=== PATIENT | female | born 1955 | race Caucasian/White ===

== ENCOUNTER 2019-07-22 08:09 | Outpatient (RCR) | payer BC, SELFPAY ==
[2019-04-28 12:31] LABS: INR 2.1; Prothrombin Time 22.5 Seconds (9.64-11.0)
[2019-07-22 08:29] LABS: Prothrombin Time 29.6 Seconds (9.64-11.0)
== END 2019-07-27 23:59 | disposition home or self-care (01) ==
LOC: CHSLAB 08:09
PROVIDERS: PCP Internal Medicine; Visit Provider Internal Medicine
DX: Z79.01 Long term (current) use of anticoagulants (principal)
CPT/HCPCS: 36415; 85610

== ENCOUNTER 2019-10-06 10:46 | Outpatient (RCR) | payer MEDICARE, SELFPAY ==
[2019-10-06 11:17] LABS: INR 2.3; Prothrombin Time 22.8 Seconds (9.64-11.0)
== END 2020-01-04 23:59 | disposition home or self-care (01) ==
LOC: CHSLAB 10:46
PROVIDERS: PCP Internal Medicine; Visit Provider Internal Medicine
DX: Z79.01 Long term (current) use of anticoagulants (principal)
CPT/HCPCS: 36415; 85610

== ENCOUNTER 2020-01-06 08:53 | Emergency (ER) | payer MEDICARE, SELFPAY ==
--- NOTE | ~2020-01-06 | XR_ITS ---
EXAMINATION: XR chest 1V portable DATE: 01/06/2020 09:52 INDICATION: Palpitations TECHNIQUE: frontal and lateral views of the chest were obtained. COMPARISON: Chest radiograph dated 12/25/16 FINDINGS: The lungs remain clear with no focal airspace opacities, pulmonary edema, pleural effusion or pneumot horax. Heart size within normal limits for AP technique. Gas within a moderate sized hiatal hernia. IMPRESSION: 1. No acute cardiopulmonary disease. 2. Moderate-sized hiatal hernia. Reviewed, dictated and finalized at location A.
[2020-01-06 09:10] VITALS: BP 119/84; PULSE 71; RESP 16; TEMP 37.2; O2SAT 97
--- NOTE | 2020-01-06 09:10 | ECG_ITS ---
Measurements Intervals [place] Rate: 65 P: 60 CO: 171 QRS: 55 QRSD: 89 T: 31 QT: 372 QTc: 389 Interpretive Statements SINUS RHYTHM NORMAL ECG Electronically Signed On 01-06-2020 10:38:13 CDT by Davie Vergara D.O.
[2020-01-06 09:22] VITALS: PULSE 69
[2020-01-06 09:25] LABS: Basophils Absolute Auto 0.03 K/mm3 (0.00-0.10); Basophils Percent Auto 0.5 % (0.0-1.0); Eosinophils Absolute Auto 0.09 K/mm3 (0.02-0.50); Eosinophils Percent Auto 1.6 % (1.0-6.0); Immature Granulocyte Absolute 0.02 K/mm3 (0.00-0.00); Immature Granulocyte Percent A 0.3 % (0.0-0.0); Lymphocytes Absolute Auto 1.54 K/mm3 (1.10-4.50); Lymphocytes Percent Auto 26.8 % (18.0-42.0); Mean Corpuscular HGB Conc 33.3 g/dL (32.0-36.0); Mean Corpuscular Hemoglobin 31.9 pg (27.0-31.0); Mean Corpuscular Volume 95.7 fL (78.0-102.0); Mean Platelet Volume 10.4 fl (9.2-11.8); Monocytes Absolute Auto 0.53 K/mm3 (0.10-0.90); Monocytes Percent Auto 9.2 % (2.0-11.0); Neutrophils Absolute Auto 3.5 K/mm3 (1.7-7.2); Neutrophils Percent Auto 61.6 % (50.0-70.0); Platelet Count Result 244 K/mm3 (150-420); Red Cell Distribution Width 12.1 % (11.6-14.4); White Blood Count 5.7 K/mm3 (4.8-10.8)
--- NOTE | 2020-01-06 09:29 | ED.ARRPALP ---
HPI - Arrhythmia/Palpitations General Chief Complaint: Arrhythmia/Palpitations Stated Complaint: afib Source: patient Mode of arrival: ambulatory Limitations: no limitations History of Present Illness HPI narrative: patient is a 64-year-old female who presents to the emergency department with complaints of palpitations. Patient has had a history of similar problems. Last time this happened was in June of this year, and before that it was almost a year and half ago. She does take Coumadin for her palpitations. This episode started at about 2 in the morning, which is normally how she notices her palpitations beginning. She stated that she was in AFib until she pretty much reach the parking lot here in the hospital. She states now it is back in to normal rhythm. She really did not have any symptoms other than noticing the palpitations. She states is not uncomfortable fluttering in her chest, but she does not have dizziness lightheadedness nausea vomiting no marcia chest pain shortness of breath or other symptomatology. MD complaint: skipped beats and palpitations Onset (ago): hour(s) Duration: constant Severity: mild Context: occurred during rest Arrhythmia history: atrial fibrillation Associated symptoms: denies other symptoms Related Data Home Medications Medication Instructions Recorded Confirmed atorvastatin 40 mg tablet 40 mg PO DAILY 08/13/19 01/06/20 cholecalciferol (vitamin D3) 50 50 mcg PO DAILY 08/13/19 01/06/20 mcg (2,000 unit) capsule levothyroxine 125 mcg capsule 125 mcg PO DAILY 08/13/19 01/06/20 lisinopril 10 mg tablet 10 mg PO DAILY 08/13/19 01/06/20 warfarin 6 mg tablet 6 mg PO WEEKLY 08/13/19 01/06/20 Allergies Allergy/AdvReac Type Severity Reaction Status Date / Time propoxyphene Allergy Mild ITCHING, Verified 08/13/19 16:28 INCREASED HR codeine Allergy Unknown Palpitation Verified 08/13/19 16:28 s Review of Systems Review of Systems: All systems reviewed & are unremarkable except as noted in HPI and below Constitutional: Constitutional: Reports no additional constitutional complaints Eyes: Eyes: Reports no additional eye complaints ENT: Reports system reviewed and no additional complaints, except as documented Cardiovascular: Cardiovascular: Reports as per HPI, Denies chest pain and Denies radiating jaw, neck or arm pain Respiratory: Respiratory: Reports no additional respiratory complaints Gastrointestinal: Gastrointestinal: Reports no additional gastrointestinal complaints Musculoskeletal: Musculoskeletal: Reports no additional musculoskeletal complaints Neurologic: Reports system reviewed and no additional complaints, except as documented Psychiatric: Psychiatric: Reports no additional psychiatric complaints Endocrine: Endocrine: Reports no additional endocrine complaints Hematologic/Lymphatic: Hematologic/Lymphatic: Reports no additional hematologic/lymphatic complaints Allergic/Immunologic: Allergic/Immunologic: Reports no additional allergic/immunologic complaints PMFSH Past Medical History Medical History Arthritis Body mass index (bmi) 31.0-31.9, adult (02/24/19) BRAY (dyspnea on exertion) Dyslipidemia Essential hypertension History of palpitations Obesity (BMI 30.0-34.9) PAF (paroxysmal atrial fibrillation) Preop cardiovascular exam Smoking Thyroid disease Surgical History Surgical History History of hysterectomy History of tonsillectomy Family History Family History Father Diabetes mellitus Family history of malignant neoplasm of urinary bladder Mother Acute myocardial infarction Social History Social History Smoking status: Current every day smoker Exam Const: General: no acute distress and alert N
[2020-01-06 09:51] LABS: Alanine Aminotransferase 27 U/L (14-59); Albumin Level 3.7 g/dL (3.4-5.0); Alkaline Phosphatase 92 U/L (46-116); Anion Gap 7 mmol/L (8-16); Aspartate Amino Transferase 19 U/L (15-37); Bilirubin,Total 0.5 mg/dL (0.00-1.00); Blood Urea Nitrogen 12 mg/dL (7-18); Calcium 9.3 mg/dL (8.5-10.1); Carbon Dioxide 27 mmol/L (21-32); Chloride 106 mmol/L (98-108); Estimated CRCL calculation 55 ml/min; Estimated Glomerular Filt Rate > 60; Glucose 112 mg/dL (70-99); Magnesium 2.2 mg/dL (1.8-2.4); Osmolality Calculated 290 mOsm/kg (285-295); Sodium 140 mmol/L (136-145); Total Protein 7.5 g/dL (6.4-8.2); Troponin I < 0.02 ng/mL (0.00-0.056)
[2020-01-06 09:52] LABS: Thyroid Stimulating Hormone 0.38 uIU/mL (0.36-3.74)
[2020-01-06 10:33] LABS: INR 2.8; Prothrombin Time 27.7 Seconds (9.64-11.0)
[2020-01-06 11:23] VITALS: BP 129/88; PULSE 74; RESP 16; TEMP 36.6; O2SAT 98
== END 2020-01-06 11:25 | disposition home or self-care (01) ==
PROVIDERS: Emergency Provider Emergency Medicine; PCP Internal Medicine
DX: I48.91 Unspecified atrial fibrillation (principal); E78.5 Hyperlipidemia, unspecified; E66.9 Obesity, unspecified; F17.200 Nicotine dependence, unspecified, uncomplicated; Z79.01 Long term (current) use of anticoagulants
CPT/HCPCS: 36415; 71045; 80053; 83735; 84443; 84484; 85025; 85610; 93005; 99284

== ENCOUNTER 2020-04-01 11:46 | Outpatient (RCR) | payer MEDICARE, SELFPAY ==
[2020-04-01 12:10] LABS: INR 3.5; Prothrombin Time 34.3 Seconds (9.64-11.0)
== END 2020-06-30 23:59 | disposition home or self-care (01) ==
LOC: CHSLAB 11:46
PROVIDERS: PCP Internal Medicine; Visit Provider Internal Medicine
DX: Z79.01 Long term (current) use of anticoagulants (principal)
CPT/HCPCS: 36415; 85610

== ENCOUNTER 2020-07-18 07:43 | Outpatient (CLI) | payer MEDICARE, SELFPAY ==
--- NOTE | ~2020-07-18 | MM_ITS ---
EXAMINATION: MM screening osmel BI w idalmis HISTORY: Screening mammogram TECHNIQUE: Craniocaudal and mediolateral oblique 3-D tomosynthesis images were obtained and synthetic 2-D images were generated. CAD analysis was submitted and interpreted. COMPARISON: 05/25/2019, 05/22/2018, 05/09/2017, 03/23/2016, 08/14/2011 bilateral digital screening mammog [place] examinations BREAST PARENCHYMAL COMPOSITION: There are scattered areas of fibroglandular density. FINDINGS: There is chronic asymmetry in the upper inner quadrant of the left breast, not significantl y changed since 08/14/2011. There is no evidence of suspicious mass, calcification, or architectural di stortion to suggest malignancy in either breast. There has been no suspicious interval change. IMPRESSION: 1. No mammographic evidence of malignancy. 2. Recommend routine screening mammography in one year. BI-RADS Category 2: Benign finding(s). Reviewed, dictated and finalized at location A. [employer]
== END 2020-07-18 07:44 | disposition home or self-care (01) ==
LOC: CHSIMG 07:45
PROVIDERS: PCP Internal Medicine; Visit Provider Internal Medicine
DX: Z12.31 Encounter for screening mammogram for malignant neoplasm of breast (principal)
CPT/HCPCS: 77063; 77067

== ENCOUNTER 2020-07-22 07:44 | Outpatient (CLI) | payer MEDICARE, SELFPAY ==
--- NOTE | ~2020-07-22 | US_ITS ---
EXAMINATION: US carotid duplex BI DATE: 07/22/2020 08:33 INDICATION: Bilateral carotid stenosis. TECHNIQUE: Grayscale, color Doppler, and pulsed Doppler images of the cervical carotid arteries were obtained. The degree of vessel stenosis is placed in one of the following categories: normal, <50%, 5 0-69%, >=70% but less than near-occlusion, near-occlusion, or total occlusion. Note that percent sten osis relative to normal distal artery lumen diameter is indirectly measured from velocity measurement s as described by Luis, et al. Radiology 2003; 229:340-346. COMPARISON: Ultrasound 08/22/2017 FINDINGS: RIGHT: The right common carotid artery (CCA) peak systolic velocity (PSV) is 100 cm/s. The right internal ca rotid artery (ICA) PSV is 88 cm/s. The right ICA end-diastolic velocity (EDV) is 16 cm/s. The right I CA/CCA PSV ratio is 0.9. Grayscale and color Doppler images yield an estimate of <50% diameter reduct ion from plaque in the ICA. There is antegrade flow in the right vertebral artery. LEFT: The left CCA PSV is 90 cm/s. The left ICA PSV is 73 cm/s. The left ICA EDV is 25 cm/s. The left ICA/C CA PSV ratio is 0.8. Grayscale and color Doppler images yield an estimate of <50% diameter reduction from plaque in the ICA. There is antegrade flow in the left vertebral artery. IMPRESSION: 1. <50% stenosis in the right internal carotid artery. 2. <50% stenosis in the left internal carotid artery. Reviewed, dictated and finalized at location A. [employer]ACHINE
== END 2020-07-22 07:45 | disposition home or self-care (01) ==
LOC: CHSIMG 07:45
PROVIDERS: PCP Internal Medicine; Visit Provider Internal Medicine
DX: I65.23 Occlusion and stenosis of bilateral carotid arteries (principal)
CPT/HCPCS: 93880

== ENCOUNTER 2020-07-29 07:52 | Outpatient (CLI) | payer MEDICARE, SELFPAY ==
--- NOTE | ~2020-07-29 | DEXA_ITS ---
Bone Density Report Name: Karla Clements Age: 64 Sex: Female Ethnicity: White Date of : 1955 Indication: osteopenia; hysterectomy; Referring Provider: Kris Hussein Study: Bone densitometry was performed. Exam Date: July 29, 2020 Accession number: [id number] Bone Density: Region BMD T-score Z-score Classification AP Spine(L1, L2, L4) 0.898 -1.2 0.6 Osteopenia Femoral Neck (Left) 0.576 -2.5 -0.8 Osteoporosis Total Hip (Left) 0.702 -2.0 -0.6 Osteopenia Femoral Neck (Right) 0.629 -2.0 -0.4 Osteopenia Total Hip (Right) 0.702 -2.0 -0.6 Osteopenia Femoral Neck Mean 0.603 -2.2 -0.6 Osteopenia Total Hip Mean 0.702 -2.0 -0.6 Osteopenia World Health Organization criteria for BMD impression classify patients as: Normal (T-score at or above -1.0), Osteopenia (T-score between -1.0 and -2.5), or Osteoporosis (T-score at or below -2.5). 10-year Fracture Risk: FRAX not reported because: Some T-score for Spine Total or Hip Total or Femoral Neck at or below -2.5 Previous Exams: Region Exam Age BMD T-score BMD Change BMD Change Date g/cm2 vs Baseline vs Previous AP Spine (L1-L2,L4) 07/29/2020 64 0.898 -1.2 0.007 (0.8%)# 0.007 (0.8%)# 03/23/2016 60 0.891 -1.3 Total Hip(Left) 07/29/2020 64 0.702 -2.0 -0.062 (-8.1%) -0.062 (-8.1%) 03/23/2016 60 0.764 -1.5 *Denotes significance at 95% confidence level, LSC for AP Spine = 0.022 g/cm2, LSC for Total Hip = 0.027 g/cm2 # Denotes dissimilar scan types or analysis methods Clinical Information Provided by Patient: Smokes Has used the following medications: Vitamin D Has the following medical conditions: Hysterectomy Menopause Age: 38 No regular weight bearing exercise Does not regularly consume dairy products Onset of menses at age 10 Number of children 3 Impression: The patient has osteoporosis, based on the Left Femoral Neck T-score. The patient has risk factors, including: smoking. No significant bone loss was observed. Discussion: INCREASED RISK OF FRACTURE. BONE DENSITY IS UNDESIRABLY LOW AT ONE OR MORE SKELETAL SITES, CONSISTENT WITH POSTMENOPAUSAL OSTEOPOROSIS. This patient's lowest T-score meets the World Health Organization's (WHO) criteria for osteoporosis at one or more sites (T-score -2.5 or below). In untreated patients, the risk of osteoporotic fracture increases approximately two-fold for each 1.0 SD decrease in T-score. Low bone density is not the only risk factor for fracture; also consider factors davis
--- NOTE | ~2020-07-29 | CT_ITS ---
EXAMINATION: CT lung screening DATE: 07/29/2020 08:21 INDICATION: tobacco dependence; lung cancer screening hx tobacco dependence, still smoking TECHNIQUE: Computed tomography (CT) of the chest was performed without intravenous contrast. Addition al 3D reconstructions utilizing coronal maximum intensity projection (MIP) were performed. Automated exposure control and iterative reconstruction technique were employed. The dose-length product was 11 8.20 mGy-cm. COMPARISON: 08/22/2017 FINDINGS: Unchanged mild linear discoid atelectasis/scarring at the lingula and the anterior segment of the rig ht upper lobe. Unchanged very small calcified left lower lobe nodule consistent with old granulomatou s disease. No other pulmonary nodules, airspace disease, pulmonary edema or pleural effusion. Heart s ize is normal. Atherosclerotic coronary artery calcification is. No pericardial effusion. Moderate-si zed sliding-type hiatal hernia. No pathologically enlarged thoracic lymphadenopathy. Lower thoracic k yphosis with severe spondylosis and chronic mild anterior wedging at T10-T12. IMPRESSION: 1. Lung-RADS category 1: Negative. Continue annual screening with noncontrast low-dose chest CT in 12 months. 2. Moderate-sized sliding-type hiatal hernia. Reviewed, dictated and finalized at location B. IMPRESSION: 1. Lung-RADS category 1: Negative. Continue annual screening with noncontrast l ow-dose chest CT in 12 months. 2. Moderate-sized sliding-type hiatal hernia.
== END 2020-07-29 07:53 | disposition home or self-care (01) ==
LOC: CHSIMG 07:55
PROVIDERS: PCP Internal Medicine; Visit Provider Internal Medicine
DX: Z12.2 Encounter for screening for malignant neoplasm of respiratory organs (principal); Z87.891 Personal history of nicotine dependence; M81.0 Age-related osteoporosis without current pathological fracture
CPT/HCPCS: 71271; 77080

== ENCOUNTER 2020-09-08 08:38 | Outpatient (CLI) | payer MEDICARE, SELFPAY ==
[2020-09-08] MEDS: ZOLEDRONIC ACID 5 MG/100 ML 100 ML 400 MG IVPB (09:02)
[2020-09-08 09:15] VITALS: BMI 35.9
--- NOTE | 2020-09-08 09:24 | PC.NURSE ---
Patient here for Reclast IV infusion. Educated on medication. No concerns voiced. Safe exit of hospital.
== END 2020-09-08 08:39 | disposition home or self-care (01) ==
LOC: CHSTREATRM 08:42
PROVIDERS: PCP Internal Medicine; Visit Provider Internal Medicine
DX: M81.0 Age-related osteoporosis without current pathological fracture (principal)
CPT/HCPCS: 96374; J3489

== ENCOUNTER 2021-01-19 08:10 | Outpatient (RCR) | payer MEDICARE, SELFPAY ==
[2021-01-11 08:28] LABS: INR 4.1; Prothrombin Time 41.4 Seconds (9.50-12.10)
[2021-01-19 08:38] LABS: INR 2.3; Prothrombin Time 23.2 Seconds (9.50-12.10)
== END 2021-04-11 23:59 | disposition home or self-care (01) ==
LOC: CHSLAB 08:10
PROVIDERS: PCP Internal Medicine; Visit Provider Internal Medicine
DX: Z79.01 Long term (current) use of anticoagulants (principal)
CPT/HCPCS: 36415; 85610

== ENCOUNTER 2021-08-04 06:53 | Outpatient (CLI) | payer MEDICARE, SELFPAY ==
--- NOTE | ~2021-08-04 | MM_ITS ---
EXAMINATION: MM screening osmel BI w idalmis HISTORY: Screening TECHNIQUE: Craniocaudal and mediolateral oblique 3-D tomosynthesis images were obtained and synthetic 2-D images were generated. CAD analysis was submitted and interpreted. COMPARISON: Comparison to multiple prior studies sequentially, with oldest reviewed study dated 07/2014. BREAST PARENCHYMAL COMPOSITION: There are scattered areas of fibroglandular density. FINDINGS: Focal asymmetry in the medial aspect of the left breast is stable. There is no evidence of suspicious mass, calcification, or architectural distortion to suggest malignancy in either breast. T here has been no suspicious interval change. IMPRESSION: 1. No mammographic evidence of malignancy. 2. Recommend routine screening mammography in one year. BI-RADS Category 1: Negative Reviewed, dictated and finalized at location A.
== END 2021-08-04 06:54 | disposition home or self-care (01) ==
LOC: CHSIMG 06:56
PROVIDERS: PCP Internal Medicine; Visit Provider Internal Medicine
DX: Z12.31 Encounter for screening mammogram for malignant neoplasm of breast (principal)
CPT/HCPCS: 77063; 77067

== ENCOUNTER 2021-08-09 07:26 | Outpatient (CLI) | payer MEDICARE, SELFPAY ==
--- NOTE | ~2021-08-09 | CT_ITS ---
EXAMINATION:CT lung screening DATE: 08/09/2021 07:41 INDICATION: Personal history of nicotine dependence. Current smoker with 49 pack year history. TECHNIQUE: Computed tomography (CT) of the chest was performed without intravenous contrast. Automate d exposure control and iterative reconstruction technique were employed. The dose-length product (DLP ) was 119.06 mGy-cm. COMPARISON: Chest CT 07/29/2020 FINDINGS: There is mild atelectasis bilaterally. A calcified left lung nodule is consistent with old granulomatous disease. No pleural effusion. The heart size is normal. There are coronary artery calci fications. No pericardial effusion. There is a moderate-sized sliding hiatal hernia. There is thoraci c kyphosis and severe spondylosis. IMPRESSION: 1. Lung-RADS category 1: Negative. Continue annual screening with noncontrast low-dose chest CT in 12 months. 2. Moderate-sized sliding hiatal hernia. Reviewed, dictated and finalized at location A. IMPRESSION: 1. Lung-RADS category 1: Negative. Continue annual screening with noncontrast l ow-dose chest CT in 12 months. 2. Moderate-sized sliding hiatal hernia.
== END 2021-08-09 07:27 | disposition home or self-care (01) ==
LOC: CHSIMG 07:27
PROVIDERS: PCP Internal Medicine; Visit Provider Internal Medicine
DX: Z12.2 Encounter for screening for malignant neoplasm of respiratory organs (principal); Z87.891 Personal history of nicotine dependence
CPT/HCPCS: 71271

== ENCOUNTER 2021-09-14 08:44 | Outpatient (CLI) | payer MEDICARE, SELFPAY ==
[2021-09-14 08:57] VITALS: BMI 34.0
[2021-09-14 08:58] VITALS: BP 124/74; PULSE 72; RESP 14; TEMP 36.2; O2SAT 98
[2021-09-14] MEDS: ZOLEDRONIC ACID 5 MG/100 ML 100 ML 400 MG IVPB (09:00)
--- NOTE | 2021-09-14 09:06 | PC.NURSE ---
Patient here for yearly IV Reclast infusion. Education given. No concerns voiced. IV Relcast administered. SEE MAR. Tolerated well. Safe exit of hospital.
== END 2021-09-14 08:45 | disposition home or self-care (01) ==
LOC: CHSTREATRM 08:47
PROVIDERS: PCP Internal Medicine; Visit Provider Internal Medicine
DX: M81.0 Age-related osteoporosis without current pathological fracture (principal)
CPT/HCPCS: 96374; J3489

== ENCOUNTER 2022-06-13 07:39 | Outpatient (RCR) | payer MEDICARE, SELFPAY ==
[2022-05-04 11:34] LABS: INR 2.1; Prothrombin Time 21.5 Seconds (9.50-12.10)
[2022-06-13 11:17] LABS: INR 2.3; Prothrombin Time 23.9 Seconds (9.64-11.0)
== END 2022-08-02 23:59 | disposition home or self-care (01) ==
LOC: CHSLAB 07:39
PROVIDERS: PCP Internal Medicine; Visit Provider Internal Medicine
DX: Z51.81 Encounter for therapeutic drug level monitoring (principal); Z79.01 Long term (current) use of anticoagulants
CPT/HCPCS: 36415; 85610

== ENCOUNTER 2022-08-08 13:18 | Outpatient (CLI) | payer MEDICARE, SELFPAY ==
--- NOTE | ~2022-08-08 | MM_ITS ---
EXAMINATION: MM screening osmel BI w idalmis HISTORY: Screening TECHNIQUE: Craniocaudal and mediolateral oblique 3-D tomosynthesis images were obtained and synthetic 2-D images were generated. CAD analysis was submitted and interpreted. COMPARISON: Comparison to multiple prior studies sequentially, with oldest reviewed study dated 04/13. BREAST PARENCHYMAL COMPOSITION: There are scattered areas of fibroglandular density. FINDINGS: Stable left breast asymmetry. There is no evidence of suspicious mass, calcification, or ar chitectural distortion to suggest malignancy in either breast. There has been no suspicious interval change. IMPRESSION: 1. No mammographic evidence of malignancy. 2. Recommend routine screening mammography in one year. BI-RADS Category 1: Negative Reviewed, dictated and finalized at location A.
== END 2022-08-08 13:19 | disposition home or self-care (01) ==
LOC: CHSIMG 13:19
PROVIDERS: PCP Internal Medicine; Visit Provider Internal Medicine
DX: Z12.31 Encounter for screening mammogram for malignant neoplasm of breast (principal)
CPT/HCPCS: 77063; 77067

== ENCOUNTER 2022-08-21 12:45 | Outpatient (CLI) | payer MEDICARE, SELFPAY ==
--- NOTE | ~2022-08-21 | US_ITS ---
EXAMINATION: US carotid duplex BI DATE: 08/21/2022 13:13 INDICATION: Carotid stenosis. TECHNIQUE: Grayscale, color Doppler, and pulsed Doppler images of the cervical carotid arteries were obtained. The degree of vessel stenosis is placed in one of the following categories: normal, <50%, 5 0-69%, >=70% but less than near-occlusion, near-occlusion, or total occlusion. Note that percent sten osis relative to normal distal artery lumen diameter is indirectly measured from velocity measurement s as described by Luis, et al. Radiology 2003; 229:340-346. COMPARISON: Ultrasound 07/22/2020 FINDINGS: RIGHT: The right common carotid artery (CCA) peak systolic velocity (PSV) is 87 cm/s. The right internal car otid artery (ICA) PSV is 91 cm/s. The right ICA end-diastolic velocity (EDV) is 41 cm/s. The right IC A/CCA PSV ratio is 1.0. Grayscale and color Doppler images yield an estimate of <50% diameter reducti on from plaque in the ICA. There is antegrade flow in the right vertebral artery. LEFT: The left CCA PSV is 66 cm/s. The left ICA PSV is 94 cm/s. The left ICA EDV is 40 cm/s. The left ICA/C CA PSV ratio is 1.4. Grayscale and color Doppler images yield an estimate of <50% diameter reduction from plaque in the ICA. There is antegrade flow in the left vertebral artery. IMPRESSION: 1. <50% stenosis in the right internal carotid artery. 2. <50% stenosis in the left internal carotid artery. Reviewed, dictated and finalized at location A.
--- NOTE | ~2022-08-21 | CT_ITS ---
EXAMINATION: CT lung screening DATE: 08/21/2022 13:17 INDICATION: Personal history of tobacco dependence TECHNIQUE: Computed tomography (CT) of the chest was performed without intravenous contrast. The dose -length product was 113.24 mGy-cm. Automated exposure control and iterative reconstruction technique were employed. COMPARISON: CT dated 08/09/2021 and 07/29/2020 FINDINGS: No significant pleural or pericardial effusion. Heart size normal. No thoracic lymphadenopa thy. There is atherosclerosis of the aorta and coronary arteries. Moderate size hiatal hernia. No pne umothorax. No endobronchial lesions. No suspicious pulmonary nodules or masses. There is lingular ate lectasis. There is a calcified granuloma in the left lower lobe. IMPRESSION: 1. Lung-RADS category 1: Negative. Continue annual screening with noncontrast low-dose chest CT in 12 months. Reviewed, dictated and finalized at location L. IMPRESSION: 1. Lung-RADS category 1: Negative. Continue annual screening with noncontrast l ow-dose chest CT in 12 months.
== END 2022-08-21 12:46 | disposition home or self-care (01) ==
LOC: CHSIMG 12:47
PROVIDERS: PCP Internal Medicine; Visit Provider Internal Medicine
DX: I65.23 Occlusion and stenosis of bilateral carotid arteries (principal); Z12.2 Encounter for screening for malignant neoplasm of respiratory organs; Z87.891 Personal history of nicotine dependence
CPT/HCPCS: 71271; 93880

== ENCOUNTER 2022-09-28 12:19 | Outpatient (CLI) | payer MEDICARE, SELFPAY ==
--- NOTE | 2022-09-28 12:35 | PC.NURSE ---
Patient here to receive Reclast infusion. Patient sitting up in chair, tolerated IV start well. Call light provided. Waiting for medication from pharmacy.
[2022-09-28] MEDS: ZOLEDRONIC ACID 5 MG/100 ML 100 ML 400 MG IVPB (12:52)
--- NOTE | 2022-09-28 13:20 | PC.NURSE ---
Patient tolerated Reclast infusion well. Denies any questions or concerns. IV site removed, tip intact. Dressing applied to site. patient left floor ambulatory.
== END 2022-09-28 12:20 | disposition home or self-care (01) ==
LOC: CHSTREATRM 12:20
PROVIDERS: PCP Internal Medicine; Visit Provider Internal Medicine
DX: M81.0 Age-related osteoporosis without current pathological fracture (principal)
CPT/HCPCS: 96365; 96374; J3489

== ENCOUNTER 2022-10-24 09:43 | Outpatient (CLI) | payer MEDICARE, SELFPAY ==
--- NOTE | ~2022-10-24 | MM_ITS ---
? Bone Density Report? Name:? Karla Clements J Patient ID:??? [id number] Age:? 67 Sex:? Female Ethnicity:? White Date of : 1955 Indication: postmenopausal; screening for osteoporosis; height loss; hysterectomy; Referring Provider: Kris Hussein Study: Bone densitometry was performed. Exam Date: October 24, 2022 Accession number: [id number] Bone Density: Region? BMD??? T-score? Z-score?? Classification AP Spine(L1-L4)? 0.827?? -2.0?0.1? Osteopenia Femoral Neck (Left)? 0.576?? -2.5? -0.7? Osteoporosis Total Hip (Left)? 0.774? ? -1.4? 0.1? Osteopenia Femoral Neck (Right)? 0.637? ? -1.9? -0.2? Osteopenia Total Hip (Right)? 0.755? ? -1.5? -0.1? Osteopenia Femoral Neck Mean? 0.606 ?? -2.2? -0.4? Osteopenia Total Hip Mean? 0.764?? -1.5? 0.0? Osteopenia World Health Organization criteria for BMD impression classify patients as: Normal (T-score at or above -1.0), Osteopenia (T-score between -1.0 and -2.5), or Osteoporosis (T-score at or below -2.5). 10-year Fracture Risk: FRAX not reported because: ? Some T-score for Spine Total or Hip Total or Femoral Neck at or below -2.5 Clinical Information Provided by Patient: Smokes Has used the following medications: Vitamin D Has the following medical conditions: Hysterectomy Patient maximum height was 64 Menopause Age: 48 No regular weight bearing exercise Does not regularly consume dairy products Drinks caffeinated beverages Onset of menses at age 10 Number of children 3 Impression: The patient has osteoporosis, based on the Left Femoral Neck T- score. The patient has risk factors, including: smoking. Discussion: INCREASED RISK OF FRACTURE. BONE DENSITY IS UNDESIRABLY LOW AT ONE OR MORE SKELETAL SITES, CONSISTENT WITH POSTMENOPAUSAL OSTEOPOROSIS. This patient's lowest T-score meets the World Health Organization's (WHO) criteria for osteoporosis at one or more sites (T-score -2.5 or below).? In untreated patients, the risk of osteoporotic fracture increases approximately two-fold for each 1.0 SD decrease in T-score.? Low bone density is not the only risk factor for fracture; also consider factors such as patient's age, frailty or poor health, risk of falling, risk of injury, previous osteoporotic fracture, family history of osteoporosis, cigarette smoking, low body weight, etc.? Not everyone with low bone mineral density has osteoporosis; osteomalacia and other metabolic bone disorders should also be considered. Patients who have osteoporosis should be evaluated for specific diseases and conditions (secondary causes) that may cause or contribute to bone loss.? The [place] [employer]ocrinologists (AACE) and National Osteoporosis Foundation (NOF) recommend pharmacologic intervention for all postmenopausal women whose T-score is in this ran
--- NOTE | ~2022-10-24 | DEXA_ITS ---
? Bone Density Report? Name:? Karla Clements J Patient ID:??? [id number] Age:? 67 Sex:? Female Ethnicity:? White Date of : 1955 Indication: postmenopausal; screening for osteoporosis; height loss; hysterectomy; Referring Provider: Kris Hsusein Study: Bone densitometry was performed. Exam Date: October 24, 2022 Accession number: [id number] Bone Density: Region? BMD??? T-score? Z-score?? Classification AP Spine(L1-L4)? 0.827?? -2.0?0.1? Osteopenia Femoral Neck (Left)? 0.576? ? -2.5? -0.7? Osteoporosis Total Hip (Left)? 0.774? ? -1.4? 0.1 ? Osteopenia Femoral Neck (Right)? 0.637? ? -1.9? -0.2? Osteopenia Total Hip (Right)? 0.755? ? -1.5? -0.1? Osteopenia Femoral Neck Mean? 0.606?? -2.2? -0.4? Osteopenia Total Hip Mean? 0.764? ? -1.5? 0.0? Osteopenia World Health Organization criteria for BMD impression classify patients as: Normal (T-score at or above -1.0), Osteopenia (T-score between -1.0 and -2.5), or Osteoporosis (T-score at or below -2.5). 10-year Fracture Risk: FRAX not reported because: ? Some T-score for Spine Total or Hip Total or Femoral Neck at or below -2.5 Clinical Information Provided by Patient: Smokes Has used the following medications: Vitamin D Has the following medical conditions: Hysterectomy Patient maximum height was 64 Menopause Age: 48 No regular weight bearing exercise Does not regularly consume dairy products Drinks caffeinated beverages Onset of menses at age 10 Number of children 3 Impression: The patient has osteoporosis, based on the Left Femoral Neck T- score. The patient has risk factors, including: smoking. Discussion: INCREASED RISK OF FRACTURE. BONE DENSITY IS UNDESIRABLY LOW AT ONE OR MORE SKELETAL SITES, CONSISTENT WITH POSTMENOPAUSAL OSTEOPOROSIS. This patient's lowest T-score meets the World Health Organization's (WHO) criteria for osteoporosis at one or more sites (T-score -2.5 or below).? In untreated patients, the risk of osteoporotic fracture increases approximately two-fold for each 1.0 SD decrease in T-score.? Low bone density is not the only risk factor for fracture; also consider factors such as patient's age, frailty or poor health, risk of falling, risk of injury, previous osteoporotic fracture, family history of osteoporosis, cigarette smoking, low body weight, etc.? Not everyone with low bone mineral density has osteoporosis; osteomalacia and other metabolic bone disorders should also be considered. Patients who have osteoporosis should be evaluated for specific diseases and conditions (secondary causes) that may cause or contribute to bone loss.? The [place] [employer]ocrinologists (AACE) and National Osteoporosis Foundation (NOF) recommend pharmacologic intervention for all postmenopausal women whose T-score is in this range.
== END 2022-10-24 09:44 | disposition home or self-care (01) ==
LOC: CHSIMG 17:38
PROVIDERS: PCP Internal Medicine; Visit Provider Internal Medicine
DX: Z78.0 Asymptomatic menopausal state (principal); M85.89 Other specified disorders of bone density and structure, multiple sites
CPT/HCPCS: 77080

== ENCOUNTER 2022-11-16 23:24 | Emergency (ER) | payer MEDICARE, SELFPAY ==
[2022-11-16 23:25] VITALS: BP 167/85; PULSE 76; RESP 18; TEMP 36.8; O2SAT 98
--- NOTE | 2022-11-16 23:34 | ED.EXTPRO ---
HPI - Extremity Problem General Chief complaint: Extremity Injury, Lower Stated complaint: Left Knee Pain Time Seen by Provider: 11/16/22 23:34 Source: patient and RN notes reviewed Mode of arrival: ambulatory Limitations: no limitations History of Present Illness HPI Narrative: Patient states that she was standing at home about 1 week ago she bent over with her knees straight and then filled the hole in her posterior calf been getting progressively worse over the last week. Complaint: extremity pain Onset (ago): week(s) (1) Pain Consistency: constant Location: lower extremity Radiation: none Relieving factors: rest Exacerbating factors: weight bearing, walking and palpation Associated symptoms: denies other symptoms Related Data Home Medications Medication Instructions Recorded Confirmed atorvastatin 40 mg tablet 40 mg PO DAILY 08/13/19 11/16/22 cholecalciferol (vitamin D3) 50 50 mcg PO DAILY 08/13/19 11/16/22 mcg (2,000 unit) capsule levothyroxine 125 mcg capsule 125 mcg PO DAILY 08/13/19 11/16/22 (Tirosint) lisinopril 10 mg tablet 10 mg PO DAILY 08/13/19 11/16/22 warfarin 6 mg tablet 5 mg PO WEEKLY 08/13/19 11/16/22 Allergies Allergy/AdvReac Type Severity Reaction Status Date / Time propoxyphene Allergy Mild ITCHING, Verified 11/16/22 23:39 INCREASED HR codeine Allergy Unknown Palpitation Verified 11/16/22 23:39 s Review of Systems Review of Systems: All systems reviewed & are unremarkable except as noted in HPI and below Constitutional: Constitutional: Denies chills and Denies fever(s) Cardiovascular: Cardiovascular: Denies chest pain Respiratory: Respiratory: Denies dyspnea [facility] Past Medical History Medical History (Updated 11/17/22 @ 00:19 by Domenic Tamayo MD) Arthritis Body mass index (bmi) 31.0-31.9, adult (02/24/19) BRAY (dyspnea on exertion) Dyslipidemia Essential hypertension History of palpitations Obesity (BMI 30.0-34.9) PAF (paroxysmal atrial fibrillation) Preop cardiovascular exam Smoking Thyroid disease Surgical History Surgical History History of hysterectomy History of tonsillectomy Family History Family History Father Diabetes mellitus Family history of malignant neoplasm of urinary bladder Mother Acute myocardial infarction Social History Social History Smoking status: Current every day smoker Exam Const: General: healthy appearing, no acute distress and alert Nutritional Appearance: well nourished and obese centrally obese Orientation/consciousness: patient oriented x3 Limitations: no limitations HENMT: Head: normal to inspection Ears: external ears normal Face/Nose/Sinus: Normal external nose present Face and sinus: normal facial exam Mouth: Yes moist mucous membranes Eyes: Conjunctivae: conjunctivae normal Pupils: Equal, round and reactive pupils present EOM: EOMs intact bilaterally Neck: Neck: normal visual inspection Resp: Effort & Inspection: normal respiratory effort Auscultation: clear to auscultation bilaterally Cardio: Rate: regular rate Rhythm: regular rhythm GI: GI Palp: Yes Soft to palpation and No Tenderness to palpation present (GI) Auscultation: normal bowel sounds Back/Spine/Pelvis: Cervical Spine: cervical ROM normal Thoracic/Lumbar Spine: thoraco-lumbar ROM normal Skin: General skin exam: normal color Rashes: no rashes Neuro: General: patient oriented x3, moves all extremities, no focal motor deficits and CN's II-XI intact bilaterally Speech: normal speech Extrem: General: full ROM, normal exam except as noted, calf tenderness on the left ( moderate, negative Taryn's sign), no edema and Limp noted Left lower extremity: knee Details: tenderness Location: of the lateral joint line (mild), knee ligament exam normal and Jessica's Test Det
[2022-11-16] MEDS: KETOROLAC 30 MG/ML VIAL (*BKC) IM (23:56)
[2022-11-16 23:58] LABS: Basophils Absolute Auto 0.05 K/mm3 (0.00-0.10); Basophils Percent Auto 0.8 % (0.0-1.0); Eosinophils Absolute Auto 0.18 K/mm3 (0.02-0.50); Eosinophils Percent Auto 2.8 % (1.0-6.0); Hematocrit 41.7 % (35.0-42.0); Hemoglobin 13.7 g/dL (11.7-13.8); Immature Granulocyte Absolute 0.02 K/mm3 (0.00-0.00); Immature Granulocyte Percent A 0.3 % (0.0-0.0); Lymphocytes Absolute Auto 2.07 K/mm3 (1.10-4.50); Lymphocytes Percent Auto 32.6 % (18.0-42.0); Mean Corpuscular HGB Conc 32.9 g/dL (32.0-36.0); Mean Corpuscular Hemoglobin 32.1 pg (27.0-31.0); Mean Corpuscular Volume 97.7 fL (78.0-102.0); Mean Platelet Volume 10.3 fl (9.2-11.8); Monocytes Absolute Auto 0.73 K/mm3 (0.10-0.90); Monocytes Percent Auto 11.5 % (2.0-11.0); Neutrophils Absolute Auto 3.3 K/mm3 (1.7-7.2); Platelet Count Result 189 K/mm3 (150-420); Red Blood Count 4.27 M/mm3 (4.20-5.40); Red Cell Distribution Width 13.1 % (11.6-14.4); White Blood Count 6.4 K/mm3 (4.8-10.8)
[2022-11-17 00:06] LABS: D Dimer 0.19 mg/L (0.19-0.50)
[2022-11-17 00:30] VITALS: BP 145/70; PULSE 64; RESP 17; TEMP 36.2; O2SAT 96
== END 2022-11-17 00:33 | disposition home or self-care (01) ==
PROVIDERS: Emergency Provider Emergency Medicine; PCP Internal Medicine
DX: S86.912A Strain of unspecified muscle(s) and tendon(s) at lower leg level, left leg, initial encounter (principal); I48.0 Paroxysmal atrial fibrillation; E78.5 Hyperlipidemia, unspecified; I10 Essential (primary) hypertension; F17.210 Nicotine dependence, cigarettes, uncomplicated; Z79.01 Long term (current) use of anticoagulants; X50.0XXA Overexertion from strenuous movement or load, initial encounter
CPT/HCPCS: 36415; 85025; 85380; 96372; 99283; J1885

== ENCOUNTER 2022-11-19 10:53 | Outpatient (CLI) | payer MEDICARE, SELFPAY ==
--- NOTE | ~2022-11-19 | US_ITS ---
EXAMINATION: US venous doppler [facility] DATE: 11/19/2022 13:56 INDICATION: Left lower limb pain TECHNIQUE: Grayscale ultrasound images without and with compression and Doppler ultrasound images of the left lower extremity veins were obtained. COMPARISON: None. FINDINGS: The visualized portions of left common femoral vein, profunda (deep) femoral vein, femoral vein, popl iteal vein, peroneal veins, posterior tibial veins, gastrocnemius vein and greater saphenous vein out flow are patent. Moderate-sized Miller cyst at the left popliteal fossa measuring 3.3 x 1.8 x 1.2 cm. IMPRESSION: 1. No deep venous thrombosis in the left lower limb. 2. Moderate-sized Miller cyst at the left popliteal fossa. Reviewed, dictated and finalized at location A.
--- NOTE | ~2022-11-19 | XR_ITS ---
EXAMINATION: XR knee LT 3V DATE: 11/19/2022 11:25 INDICATION: Left knee pain TECHNIQUE: Anteroposterior, sunrise and crosstable lateral views of the affected knee were obtained COMPARISON: None. FINDINGS: Alignment is normal. No fracture. Joint spaces appear normal on nonweightbearing imaging. Tiny jose nal osteophyte along the patella is suggestion of mild subarticular cystlike change at the lateral fa cet. No joint effusion/layering lipohemarthrosis. Soft tissues are unremarkable. IMPRESSION: 1. Mild patellofemoral osteoarthritis. No joint effusion or acute osseous abnormality. Reviewed, dictated and finalized at location A. IMPRESSION: 1. Mild patellofemoral osteoarthritis. No joint effusion or acute osseous abnor mality.
[2022-11-19 11:19] LABS: INR 1.6; Prothrombin Time 17.1 Seconds (9.50-12.10)
== END 2022-11-19 10:54 | disposition home or self-care (01) ==
PROVIDERS: PCP Internal Medicine; Visit Provider Internal Medicine
DX: I48.0 Paroxysmal atrial fibrillation (principal); M25.562 Pain in left knee; M79.662 Pain in left lower leg; M71.22 Synovial cyst of popliteal space [Baker], left knee; M17.12 Unilateral primary osteoarthritis, left knee
CPT/HCPCS: 36415; 73562; 85610; 93971

== ENCOUNTER → 2022-11-23 10:59 | Outpatient (CLI) | payer MEDICARE, SELFPAY ==
--- NOTE | ~2022-11-23 | MR_ITS ---
MRI of the left knee Clinical history: Pain Technique: Coronal proton density and proton density-weighted images, sagittal proton-density and T2 fat-sat images, and axial proton-density fat-saturated images were acquired. Findings: Anterior and posterior cruciate ligaments are intact. Medial collateral ligament and the la teral collateral ligament complex are intact. Popliteus tendon is intact. Questionable radial tear at the posterior root of the medial meniscus. No other meniscal tear seen. There is patchy moderate chondromalacia of the patellofemoral compartment. There is mild chondral thi nning at the medial joint line. Extensor mechanism is intact. Small joint effusion present. Moderate Miller's cyst present with multip le internal septations. Impression: Questionable radial tear at the posterior root of the medial meniscus. Small joint effusion with moderate, multiseptated Miller's cyst. Patchy moderate chondromalacia of the patellofemoral compartment. Mild chondral thinning at the media l joint line. Reviewed, dictated and finalized at location . Impression: Questionable radial tear at the posterior root of the medial meniscus. Small joint effusion with moderate, multiseptated Miller's cyst. Patchy moderate chondromalacia of the patellofemoral compartment. Mild chondral thinning at the medial joint line.
== END ==
PROVIDERS: PCP Internal Medicine; Visit Provider Internal Medicine
DX: M25.462 Effusion, left knee (principal)
CPT/HCPCS: 73721

== ENCOUNTER 2022-12-05 10:30 | Outpatient (RCR) | payer MEDICARE, SELFPAY ==
[2022-09-19 08:49] LABS: INR 1.9; Prothrombin Time 19.3 Seconds (9.50-12.10)
[2022-11-26 13:20] LABS: INR 1.6; Prothrombin Time 17.3 Seconds (9.50-12.10)
[2022-12-05 10:57] LABS: INR 2.1; Prothrombin Time 22.1 Seconds (9.50-12.10)
== END 2022-12-18 23:59 | disposition home or self-care (01) ==
LOC: CHSLAB 10:30
PROVIDERS: PCP Internal Medicine; Visit Provider Internal Medicine
DX: Z51.81 Encounter for therapeutic drug level monitoring (principal); Z79.01 Long term (current) use of anticoagulants
CPT/HCPCS: 36415; 85610

== ENCOUNTER 2023-03-22 08:00 | Outpatient (CLI) | payer MEDICARE, SELFPAY ==
--- NOTE | ~2023-03-22 | CT_ITS ---
EXAMINATION: CT abdomen pelvis wo/w con DATE: 03/22/2023 09:06 INDICATION: Hematuria TECHNIQUE: Computed tomography (CT) of the abdomen and pelvis was performed without intravenous contr ast. CT of the abdomen and pelvis was then performed with a total of 130 mL Omnipaque 350 intravenous contrast using a double-bolus technique for simultaneous opacification of the renal parenchyma and r enal collecting system. The dose-length product (DLP) was 1449.05 mGy-cm. Automated exposure control and iterative reconstruction technique were employed. COMPARISON: 03/30/2018 FINDINGS: Minimal dependent atelectasis is present in the lung bases. The heart size is normal. There is a moderate-sized sliding hiatal hernia. The liver, spleen, pancreas, gallbladder, and adrenal gla nds are normal. Cysts of the kidneys measure up to 8 mm on the left. No stones are identified in the kidneys, ureters, or bladder. No hydronephrosis or hydroureter. No suspicious renal or urothelial les ion identified. There is calcified atherosclerosis of the aorta and many of the other arteries. No pa thologically enlarged abdominal or pelvic lymph nodes are identified. No free intraperitoneal gas or evidence of bowel obstruction. There is severe thoracolumbar spondylosis. IMPRESSION: 1. No CT correlate for the patient's symptoms. Reviewed, dictated and finalized at location B. [employer]
[2023-03-22 08:24] LABS: Estimated Glomerular Filt Rate > 60
== END 2023-03-22 08:01 | disposition home or self-care (01) ==
LOC: CHSIMG 08:02
PROVIDERS: PCP Internal Medicine; Visit Provider Internal Medicine
DX: R31.9 Hematuria, unspecified (principal)
CPT/HCPCS: 74178; Q9967

== ENCOUNTER 2023-05-27 10:34 | Outpatient (RCR) | payer MEDICARE, SELFPAY ==
[2023-05-27 11:02] LABS: INR 2.1; Prothrombin Time 22.1 Seconds (9.50-12.10)
== END 2023-08-25 23:59 | disposition home or self-care (01) ==
LOC: CHSLAB 10:34
PROVIDERS: PCP Internal Medicine; Visit Provider Internal Medicine
DX: Z51.81 Encounter for therapeutic drug level monitoring (principal); Z79.01 Long term (current) use of anticoagulants
CPT/HCPCS: 36415; 85610

== ENCOUNTER 2023-08-15 07:20 | Outpatient (CLI) | payer MEDICARE, SELFPAY ==
--- NOTE | ~2023-08-15 | MM_ITS ---
EXAMINATION: MM screening osmel BI w idalmis HISTORY: Screening TECHNIQUE: Craniocaudal and mediolateral oblique 3-D tomosynthesis images were obtained and synthetic 2-D images were generated. CAD analysis was submitted and interpreted. COMPARISON: Comparison to multiple prior studies sequentially, with oldest reviewed study dated 12/2020. BREAST PARENCHYMAL COMPOSITION: Not dense: There are scattered areas of fibroglandular density. FINDINGS: Left breast asymmetries are stable. There is no evidence of suspicious mass, calcification, or architectural distortion to suggest malignancy in either breast. There has been no suspicious int erval change. IMPRESSION: 1. No mammographic evidence of malignancy. 2. Recommend routine screening mammography in one year. BI-RADS Category 1: Negative Reviewed, dictated and finalized at location A.
== END 2023-08-15 07:21 | disposition home or self-care (01) ==
LOC: CHSIMG 07:22
PROVIDERS: PCP Internal Medicine; Visit Provider Internal Medicine
DX: Z12.31 Encounter for screening mammogram for malignant neoplasm of breast (principal)
CPT/HCPCS: 77063; 77067

== ENCOUNTER 2023-09-04 12:27 | Outpatient (CLI) | payer MEDICARE, SELFPAY ==
--- NOTE | ~2023-09-04 | CT_ITS ---
CT Scan of the Chest without Contrast: Clinical Indication: Lung cancer screening, nicotine dependence Technique: Contiguous sections were acquired throughout the chest without intravenous contrast. Dose reduction technique was used on this scan by utilizing automated exposure control and iterative recon struction technique. The dose-length product (DLP) was 131.47 mGy-cm. COMPARISON: 08/21/2022 Findings: There is no evidence of any significant mediastinal, hilar or axillary lymphadenopathy. Coronary melany ry calcifications are present. There is no evidence of pleural or pericardial effusion. The lungs are clear. No pulmonary nodules or infiltrates are noted. Images through the upper abdomen reveal moderate hiatal hernia. Impression: Lung RADS 1: Negative. 12 month follow-up screening CT advised. Reviewed, dictated and finalized at location . Impression: Lung RADS 1: Negative. 12 month follow-up screening CT advised.
== END 2023-09-04 12:28 | disposition home or self-care (01) ==
LOC: CHSIMG 12:27
PROVIDERS: PCP Internal Medicine; Visit Provider Internal Medicine
DX: Z12.2 Encounter for screening for malignant neoplasm of respiratory organs (principal); Z87.891 Personal history of nicotine dependence
CPT/HCPCS: 71271

== ENCOUNTER 2023-10-28 11:44 | Outpatient (CLI) | payer MEDICARE, SELFPAY ==
--- NOTE | ~2023-10-28 | DEXA_ITS ---
? Bone Density Report? Name:? RADHA DUKE Patient ID:??? [id number] Age:? 68 Sex:? Female Ethnicity:? White Date of : 1955 Indication: postmenopausal; screening for osteoporosis; height loss; hysterectomy; Referring Provider: Kris Hussein Study: Bone densitometry was performed. Exam Date: October 28, 2023 Accession number: [id number] Bone Density: Region? BMD??? T-score? Z-score?? Classification AP Spine(L1, L2, L4)? 0.937?? -0.9?1.2? Normal Femoral Neck (Left)? 0.589?? -2.3? -0.5? Osteopenia Total Hip (Left)? 0.747?? -1.6? -0.1? Osteopenia Femoral Neck (Right)? 0.577?? -2.5? -0.6? Osteoporosis Total Hip (Right)? 0.718?? -1.8? -0.3? Osteopenia Femoral Neck Mean? 0.583?? -2.4? -0.6? Osteopenia Total Hip Mean? 0.732?? -1.7? -0.2?Osteopenia World Health Organization criteria for BMD impression classify patients as: Normal (T-score at or above -1.0), Osteopenia (T-score between -1.0 and -2.5), or Osteoporosis (T-score at or below -2.5). 10-year Fracture Risk: FRAX not reported because: ? Some T-score for Spine Total or Hip Total or Femoral Neck at or below -2.5 Clinical Information Provided by Patient: Smokes Has used the following medications: Vitamin D Has the following medical conditions: Hysterectomy Patient maximum height was 64 Menopause Age: 38 No regular weight bearing exercise Does not regularly consume dairy products Drinks caffeinated beverages Onset of menses at age 10 Number of children 3 Impression: The patient has osteoporosis, based on the Right Femoral Neck T- score. The patient has risk factors, including: smoking. Discussion: INCREASED RISK OF FRACTURE. BONE DENSITY IS UNDESIRABLY LOW AT ONE OR MORE SKELETAL SITES, CONSISTENT WITH POSTMENOPAUSAL OSTEOPOROSIS. This patient's lowest T-score meets the World Health Organization's (WHO) criteria for osteoporosis at one or more sites (T-score -2.5 or below).? In untreated patients, the risk of osteoporotic fracture increases approximately two-fold for each 1.0 SD decrease in T-score.? Low bone density is not the only risk factor for fracture; also consider factors such as patient's age, frailty or poor health, risk of falling, risk of injury, previous osteoporotic fracture, family history of osteoporosis, cigarette smoking, low body weight, etc.? Not everyone with low bone mineral density has osteoporosis; osteomalacia and other metabolic bone disorders should also be considered. Patients who have osteoporosis should be evaluated for specific diseases and conditions (secondary causes) that may cause or contribute to bone loss.? The [place] [employer] (A
[2023-10-28 12:18] LABS: INR 2.7; Prothrombin Time 27.3 Seconds (9.50-12.1)
[2023-10-28 12:59] LABS: Alanine Aminotransferase 79 U/L (14-59); Albumin Level 3.7 g/dL (3.4-5.0); Alkaline Phosphatase 66 U/L (46-116); Anion Gap 6 mmol/L (4-12); Aspartate Amino Transferase 50 U/L (15-37); Bilirubin,Total 0.5 mg/dL (0.00-1.00); Blood Urea Nitrogen 14 mg/dL (7-18); Calcium 9.3 mg/dL (8.5-10.1); Carbon Dioxide 30 mmol/L (21-32); Chloride 102 mmol/L (98-108); Estimated Glomerular Filt Rate > 60; Glucose 100 mg/dL (70-99); Osmolality Calculated 286 mOsm/kg (285-295); Potassium 4.5 mmol/L (3.5-5.1); Sodium 138 mmol/L (136-145); Total Protein 7.4 g/dL (6.4-8.2)
== END 2023-10-28 11:45 | disposition home or self-care (01) ==
PROVIDERS: PCP Internal Medicine; Visit Provider Internal Medicine
DX: R74.01 Elevation of levels of liver transaminase levels (principal); M81.0 Age-related osteoporosis without current pathological fracture; Z78.0 Asymptomatic menopausal state; Z79.01 Long term (current) use of anticoagulants; M85.89 Other specified disorders of bone density and structure, multiple sites
CPT/HCPCS: 36415; 77080; 80053; 85610

== ENCOUNTER 2023-11-08 10:21 | Outpatient (CLI) | payer MEDICARE, SELFPAY ==
[2023-11-08 10:30] VITALS: BMI 33.6
[2023-11-08] MEDS: ZOLEDRONIC ACID 5 MG/100 ML 100 ML 400 MG IVPB (10:40)
[2023-11-08 10:44] VITALS: BP 134/70; PULSE 60; RESP 16; TEMP 36.6; O2SAT 96
[2023-11-08 11:00] VITALS: BP 124/72; PULSE 60; RESP 14
--- NOTE | 2023-11-08 11:02 | PC.NURSE ---
Patient here for yearly IV Reclast. Education given. All concerns voiced answered. IV Reclast administered. SEE MAR. Tolerated well. Safe exit of hospital.
== END 2023-11-08 10:22 | disposition home or self-care (01) ==
PROVIDERS: PCP Internal Medicine; Visit Provider Internal Medicine
DX: M81.0 Age-related osteoporosis without current pathological fracture (principal)
CPT/HCPCS: 96374; J3489

== ENCOUNTER 2023-11-18 07:40 | Outpatient (CLI) | payer MEDICARE, SELFPAY ==
--- NOTE | ~2023-11-18 | US_ITS ---
Limited Abdominal Sonogram: Real-time sonographic imaging of the right upper quadrant was performed. Clinical History: Abnormal liver enzymes Findings: The liver appears normal with no evidence of mass lesion or bile duct dilatation. Main por moises vein demonstrates normal direction of flow. The gallbladder is well distended, and appears normal with no evidence of gallstone or wall thickening. The common bile duct measures 3 mm. The visualize d pancreas, aorta, and IVC are unremarkable. Impression: No significant abnormality seen. Reviewed, dictated and finalized at location . Impression: No significant abnormality seen.
[2023-11-18 09:01] LABS: Ferritin 99 ng/mL (8-252); Iron 147 ug/dL (50-170)
[2023-11-19 10:14] LABS: Hepatitis B Surface Antibody REACTIVE (NON-REACTIVE); Hepatitis C Virus Antibody NON-REACTIVE (NON-REACTIVE)
[2023-11-19 12:33] LABS: Ceruloplasmin 23 mg/dL (14-48)
[2023-11-20 12:44] LABS: Anti Nuclear Antibody Pattern Nuclear, Homogeneous
[2023-11-22 10:28] LABS: Reference Lab Test Name MITOCHONDRIAL AB
[2023-11-22 14:49] LABS: Actin Antibody (IgG) 53 U (<20)
== END 2023-11-18 07:41 | disposition home or self-care (01) ==
LOC: CHSIMG 07:42
PROVIDERS: PCP Internal Medicine; Visit Provider Internal Medicine
DX: R94.5 Abnormal results of liver function studies (principal); D64.9 Anemia, unspecified; R74.01 Elevation of levels of liver transaminase levels
CPT/HCPCS: 36415; 76705; 82390; 82728; 83516; 83520; 83540; 86038; 86039; 86381; 86706; 86803

== ENCOUNTER 2024-04-07 12:11 | Outpatient (CLI) | payer MEDICARE, SELFPAY ==
[2024-04-07 12:40] LABS: INR 2.3; Prothrombin Time 23.5 Seconds (9.50-12.1)
== END 2024-04-07 12:12 | disposition home or self-care (01) ==
LOC: CHSLAB 12:13
PROVIDERS: PCP Internal Medicine; Visit Provider Internal Medicine
DX: K75.4 Autoimmune hepatitis (principal)
CPT/HCPCS: 36415; 83516; 85610

== ENCOUNTER 2024-05-04 06:35 | Day surgery (SDC) | payer MEDICARE, SELFPAY ==
[2024-04-14 13:17] VITALS: BMI 37.8
--- NOTE | 2024-04-14 14:00 | SUR.PREOP ---
DR NG'S OFFICE CALLED BACK REGARDING COUMADIN HOLDING. HARVEY SPOKE WITH PT ON 03/18/24, TOLD PT TO HOLD COUMADIN 5 DAYS PRIOR TO PROCEDURE. PT SEEMED UNSURE DURING MY PREOP INTERVIEW. I WILL NOTIFY PT AGAIN.
--- NOTE | 2024-04-14 14:03 | SUR.PREOP ---
VM LEFT FOR PT TO STOP COUMADIN 5 DAYS BEFORE PROCEDURE
--- NOTE | 2024-05-04 07:09 | P.PNAN_ITS ---
Anes - Initial Pre Proc Eval Procedure: Operation Date: 05/04/24 08:30 Proposed Procedures p Screening Colonoscopy - Lake Velázquez DO Date/Time: 05/04/24 07:09 Surgeon: Lake Velázquez DO Pre Op Diagnosis: Neoplasm Screening Patient Data Age: 68 Gender: F Height: 1.52 m Weight: 88 kg Allergies Allergy/AdvReac Type Severity Reaction Status Date / Time propoxyphene Allergy Mild ITCHING, Verified 04/14/24 13:15 INCREASED HR codeine Allergy Unknown Palpitation Verified 04/14/24 13:15 s Home Medications ?Medication ?Instructions ?Recorded ?Confirmed ?Type atorvastatin 40 mg tablet 40 mg PO HS 08/13/19 04/14/24 History cholecalciferol (vitamin D3) 50 50 mcg PO HS 08/13/19 04/14/24 History mcg (2,000 unit) capsule levothyroxine 125 mcg capsule 125 mcg PO HS 08/13/19 04/14/24 History (Tirosint) lisinopril 10 mg tablet 10 mg PO HS 08/13/19 04/14/24 History warfarin 6 mg tablet 5 mg PO HS 08/13/19 04/14/24 History Patient hx anesthesia problems: none Family hx anesthesia problems: none Results Review: All pre-operative results and documents have been reviewed as part of the pre- operative evaluation. [facility] Past Medical History Medical History Arthritis Thyroid disease History of palpitations Body mass index (bmi) 31.0-31.9, adult (02/24/19) BRAY (dyspnea on exertion) Dyslipidemia Essential hypertension Obesity (BMI 30.0-34.9) PAF (paroxysmal atrial fibrillation) Preop cardiovascular exam Smoking Surgical History Surgical History History of tonsillectomy History of hysterectomy Family History Family History Father Diabetes mellitus Family history of malignant neoplasm of urinary bladder Mother Acute myocardial infarction Social History Social History Smoking packs per day: 0.5 Smoking cigarettes per day: 10.0 Years smoked: 30 Smoking pack-years: 15.00 Smoking status: Current every day smoker Tobacco type: cigarettes Alcohol intake: never Substance use: never Substance use type: does not use Anes - Eval Final PreProcedure Day of Procedure 05/04/24 07:09 Patient weight: obese Heart: regular rate and rhythm Lungs: clear to auscultation Airway: Mallampati scale class II Neurological: alert and oriented Last oral intake: >/= 8 hours ASA classification: III Emergent: no Anesthetic plan: proceed Anesthesia type and monitoring: general GIVS and standard monitoring Results Review: All pre-operative results and documents have been reviewed as part of the pre- operative evaluation. Informed Consent: The patient's anesthetic plan and its attendant risks and benefits were discussed with the patient/family/POA. Questions were solicited and answers provided to the satisfaction of the patient/family/POA.
[2024-05-04 07:37] VITALS: BP 134/77; PULSE 58; RESP 16; TEMP 37.1; O2SAT 96
[2024-05-04] MEDS: LACTATED RINGERS 1,000 ML 150 ML IV CONT (07:38)
--- NOTE | 2024-05-04 08:07 | PM.IMHP ---
H&P: HPI History of Present Illness Date/Time: 05/04/24 08:07 Chief Complaint: History of colon polyps Narrative: this is a 68-year-old woman who presents for colonoscopy. Her last colonoscopy was 6 years ago and polyps were removed. She denies any hematochezia or melena. She is any first-degree family members with history of colon cancer. Review of Systems Review of Systems: All systems reviewed & are unremarkable except as noted in HPI and below Constitutional: Constitutional: Denies chills, Denies fever(s), Denies headache(s) and Denies weight loss Eyes: Eyes: Denies change in vision ENT: Denies dizziness, Denies headache(s), Denies neck mass and Denies throat swelling Cardiovascular: Cardiovascular: Denies chest pain, Denies lightheadedness and Denies dyspnea Respiratory: Respiratory: Denies cough, Denies dyspnea and Denies wheezing Gastrointestinal: Gastrointestinal: Denies abdominal pain, Denies change in bowel habits, Denies nausea and Denies vomiting Genitourinary: Genitourinary: Denies hematuria and Denies dysuria Musculoskeletal: Musculoskeletal: Reports as per HPI Integumentary/Breasts: Skin/Breast: Reports as per HPI Neurologic: Denies dizziness and Denies headache(s) Allergic/Immunologic: Allergic/Immunologic: Denies throat swelling and Denies wheezing PMF Past Medical History Medical History Arthritis Thyroid disease History of palpitations Body mass index (bmi) 31.0-31.9, adult (02/24/19) BRAY (dyspnea on exertion) Dyslipidemia Essential hypertension Obesity (BMI 30.0-34.9) PAF (paroxysmal atrial fibrillation) Preop cardiovascular exam Smoking Surgical History Surgical History History of tonsillectomy History of hysterectomy Family History Family History Father Diabetes mellitus Family history of malignant neoplasm of urinary bladder Mother Acute myocardial infarction Social History Social History Smoking packs per day: 0.5 Smoking cigarettes per day: 10.0 Years smoked: 30 Smoking pack-years: 15.00 Smoking status: Current every day smoker Tobacco type: cigarettes Alcohol intake: never Substance use: never Substance use type: does not use Meds Home Medications and Allergies Home Medications ?Medication ?Instructions ?Recorded ?Confirmed ?Type atorvastatin 40 mg tablet 40 mg PO HS 08/13/19 04/14/24 History cholecalciferol (vitamin D3) 50 50 mcg PO HS 08/13/19 04/14/24 History mcg (2,000 unit) capsule levothyroxine 125 mcg capsule 125 mcg PO HS 08/13/19 04/14/24 History (Tirosint) lisinopril 10 mg tablet 10 mg PO HS 08/13/19 04/14/24 History warfarin 6 mg tablet 5 mg PO HS 08/13/19 04/14/24 History Allergies Allergy/AdvReac Type Severity Reaction Status Date / Time propoxyphene Allergy Mild ITCHING, Verified 04/14/24 13:15 INCREASED HR codeine Allergy Unknown Palpitation Verified 04/14/24 13:15 s Vital Signs Vital Signs - 24 hr 05/04/24 07:37 Temperature 98.7 F Pulse Rate 58 L Respiratory Rate 16 Blood Pressure 134/77 Pulse Oximetry 96 Oxygen Delivery Room Air Exam Const: General: no acute distress and alert Orientation/consciousness: patient oriented x3 HENMT: Head: normocephalic and atraumatic Ears: hearing grossly normal bilaterally Face/Nose/Sinus: Normal nares present Mouth: Yes Normal oral and palatal mucosa present Eyes: Periorbital: periorbital findings normal Sclera: sclerae normal EOM: EOMs intact bilaterally Neck: Neck: normal visual inspection, no lymphadenopathy and trachea midline Chest: Chest palpation & inspection: normal inspection of the chest Resp: Effort & Inspection: normal respiratory effort Auscultation: clear to auscultation bilaterally Cardio: Jugular venous distension: no JVD Rate: regular rate Rhythm: regular rhythm Heart sounds: S1 normal heart sound present and S2 normal heart sound present Peripheral pulses: Peripheral pulses 2+ throughout GI: Inspection: normal to inspection GI Palp: Yes Soft to palpation, No Tenderness to palpation present (GI), No Guarding due to palpation present (GI) and No Rebound tenderness present Percussion: Yes normal to percussion Auscultation: normal bowel sounds : General: Yes no CVA tenderness Back/Spine/Pelvis: Back: no CVA tenderness Neuro: General: patient oriented x3, no focal motor deficits and CN's II-XI intact bilaterally Cognition (Neuro): normal cognition Speech: normal speech Motor exam (neuro): 5/5 motor strength present throughout Extrem: General: capillary refill normal and no clubbing, cyanosis or edema Assessment and Plan Assessment and plan (1) Hx of colonic polyps: Code(s): Z86.0100 - Personal history of colon polyps, unspecified Status: Acute Assessment and Plan: I have recommended colonoscopy. I have discussed the procedure, risks, benefits, and alternatives. Questions were answered. Patient is agreeable to proceed.
[2024-05-04 08:45] VITALS: BP 92/60; PULSE 65; RESP 15; O2SAT 96
[2024-05-04 08:55] VITALS: BP 97/64; PULSE 63; RESP 16; O2SAT 98
[2024-05-04 09:05] VITALS: BP 116/72; PULSE 52; RESP 16; O2SAT 99
--- NOTE | 2024-05-04 09:45 | WPDANESPN ---
Anes - Prog Note Post-Op Date/Time: 05/04/24 09:45 Cardiovascular status: normal Respiratory status: normal Airway patency: baseline Mental status: baseline Post-Op hydration status: normal Vital Signs: Last Vital Signs Temp 37.1 C 05/04/24 07:37 Pulse 52 L 05/04/24 09:05 Resp 16 05/04/24 09:05 BP 116/72 05/04/24 09:05 Pulse Ox 99 05/04/24 09:05 O2 Del Method Room Air 05/04/24 09:05 Pain Score (VAS): 0 I/O: Intake & Output 05/03/24 05/04/24 05/04/24 23:59 07:59 15:59 Intake Total 350 Balance 350 Post-procedural complaints: none Patient Feedback: Patient satisfied with anesthetic care. Other Findings: Patient vital signs back to baseline. Patient denies nausea and vomiting. Patient's pain under control. Patient OK for discharge.
== END 2024-05-04 09:14 | disposition home or self-care (01) ==
PROVIDERS: PCP Internal Medicine; Visit Provider Surgery
PROC: 0DJD8ZZ Inspection of Lower Intestinal Tract, Via Natural or Artificial Opening Endoscopic (ICD-10-PCS; CPT 45378; principal; 2024-05-04 08:30)
DX: Z86.0100 Personal history of colon polyps, unspecified (principal); D12.8 Benign neoplasm of rectum
CPT/HCPCS: 45385

== ENCOUNTER 2024-05-04 08:57 | Outpatient (NON) | payer MEDICARE, SELFPAY | END 2024-05-04 08:58 | disposition home or self-care (01) | LOC: ANHLAB 05-05 08:59 | PROVIDERS: PCP Internal Medicine; Visit Provider Surgery | DX: Z12.11 Encounter for screening for malignant neoplasm of colon (principal); D12.8 Benign neoplasm of rectum | CPT/HCPCS: 88305 ==

== ENCOUNTER 2024-06-30 12:20 | Outpatient (RCR) | payer MEDICARE, SELFPAY ==
[2024-06-30 13:10] LABS: INR 2.6; Prothrombin Time 26.3 Seconds (9.50-12.1)
== END 2024-09-28 23:59 | disposition home or self-care (01) ==
LOC: CHSLAB 12:20
PROVIDERS: PCP Internal Medicine; Visit Provider Internal Medicine
DX: I48.0 Paroxysmal atrial fibrillation (principal)
CPT/HCPCS: 36415; 85610

== ENCOUNTER 2024-08-20 13:49 | Outpatient (CLI) | payer MEDICARE, SELFPAY ==
--- NOTE | ~2024-08-20 | MM_ITS ---
EXAMINATION: MM screening osmel BI w idalmis HISTORY: Screening TECHNIQUE: Craniocaudal and mediolateral oblique 3-D tomosynthesis images were obtained and synthetic 2-D images were generated. CAD analysis was submitted and interpreted. COMPARISON: Comparison to multiple prior studies sequentially, with oldest reviewed study dated 05/22. BREAST PARENCHYMAL COMPOSITION: Not dense: There are scattered areas of fibroglandular density. FINDINGS: Left breast asymmetries are stable. There is no evidence of suspicious mass, calcification, or architectural distortion to suggest malignancy in either breast. There has been no suspicious int erval change. IMPRESSION: 1. No mammographic evidence of malignancy. 2. Recommend routine screening mammography in one year. BI-RADS Category 2: Benign finding(s). Reviewed, dictated and finalized at location A.
--- OUTSIDE RECORDS SUMMARY | 2024-08-20 14:18 | XMS_ITS | Encounter Summary ---
Author Organization [facility] Address [address] [place] [address] Care Team Providers Care Network Project Manager Name Role Phone Kris Hussein MD Primary Care Provider [phone] Cheryl Ordoñez MD Unavailable [phone] Encounter Details Date Type Department Care Team (Late st Contact Info) Description 10/02/2019 HYGIEIA Message Enc [facility] [address], [address] [place] [address] Carlos Alanis MD [address] [place] [address] Visit Follow Up Social History Tobacco Use Types Packs/Day Years Used Date Smoking Tobacco: Every Day Cigarettes 0.5 30 Smokeless Tobacco: Never Alcohol Use Standard Drinks/Week Comments No 0 (1 standard drink = 0.6 oz pur e alcohol) Comments No Sex and Gender Information Value Date Recorded Sex Assigned at Not on file Legal Sex Female 9:59 PM CDT Gender Identity Not on file Sexual Orientation Not on file 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 No / Unsure 10/02/2019 8:10 AM CDT documented as of this encounter Functional Status * RETIRED Are you deaf or do you have serious difficulty hearing Answer Date of Assessment Author Status No 04/13/2019 12:57 PM MARKET SURVEY REPRESENTATIVE Acti ve * RETIRED Are you blind or do you have serious difficulty seeing, even when wearing glasses? Answer Date of Assessment Author Status No 04/13/2019 12:57 PM MARKET SURVEY REPRESENTATIVE Acti ve * Do you have serious difficulty walking or climbing stairs? Answer Date of Assessment Author Status Yes 04/13/2019 12:57 PM Valerie Cam RN Active * Do you have difficulty dressing or bathing? Answer Date of Assessment Author Status No 04/13/2019 12:57 PM Valerie Cam RN Active * Because of a physical, mental, or emotional condition, do you have difficulty doing errands alone such as visiting a doctor's office or shopping? Answer Date of Assessment Author Status No 04/13/2019 12:57 PM Valerie Cam RN Active documented as of this encounter Mental Status * Because of a physical, mental, or emotional condition, do you have serious difficulty concentrating, remembering, or making decisions? Answer Entry Date Author Status No 04/13/2019 12:57 PM Valerie Cam RN Active documented in this encounter Plan of Treatment Not on file documented as of this encounter Visit Diagnoses Not on filedocumented in this encounter Care Teams Network Project Manager Relationship Specialty Start Date End Date Kris Hussein MD [address] [place] [address] PCP - General INTERNAL MEDICINE 12/10/16 Cheryl Ordoñez MD [address] [facility] [address] [place] [address] EP Snailer CLINICAL CARDIAC ELECTROPHYSIOLOGY 12/10/16 documented as of this encounter
--- OUTSIDE RECORDS SUMMARY | 2024-08-20 14:18 | XMS_ITS | Clinical Summary ---
Author Organization [facility] Address [address] [place] [address] Care Team Providers Care Room Server Name Role Phone Kris Hussein MD Primary Care Provider [phone] Cheryl Ordoñez MD Unavailable [phone] Allergies Active Allergy Reactions Criticality Noted Date Comments Codeine Palpitations Low 12/11/2016 Propoxyphene Itching 12/11/2016 Medications atorvastatin 40 MG tablet Take 1 tablet (40 mg total) by mouth nightly at bedtime. 0 11/30/2016 Active lisinopril 10 MG tablet Take 1 tablet (10 mg total) by mouth daily. Active levothyroxine 125 MCG tablet Take 1 tablet (125 mcg total) by mouth daily. Active warfarin 5 MG tablet Take 6.5 mg by mouth daily. 5 01/23/2018 Active vitamin D3, cholecalciferol , 75 MCG (3000 UT) Tab tablet Take 2,000 Units by mouth daily. Active warfarin (COUMADIN) 1 MG tablet 1 tablet (1 mg total). 11/28/2022 Active Active Problems Problem Noted Date Diagnosed Date Antalgic gait 01/30/2023 Primary osteoarthritis of left knee 01/30/2023 Patellofemoral maltracking 01/30/2023 Effusion of left knee joint 01/30/2023 Status post total right knee replacement 019 Sprain of medial collateral ligament of right knee, subsequent encounter 12/23/2018 Paroxysmal atrial fibrillation (CMS/HCC HHS/HCC) 12/20/2016 Resolved Problems Problem Noted Date Diagnosed Date Resolved Date Follow-up examination after orthopedic surgery 10/02/2019 01/22/2020 Osteoarthritis of right knee 04/13/2019 04/14/2019 Primary osteoarthritis of right knee 12/04/2018 04/14/2019 Family History Medical History Relation Comments No Known Problems Brother 1 COVID Brother 2 Cancer Brother 3 Diabetes Father bladder cancer Father No Known Problems Maternal Grandfather No Known Problems Maternal Grandmother Heart Disease Mother No Known Problems Paternal Grandfather No Known Problems Paternal Grandmother Breast Cancer Sister 1 No Known Problems Sister 2 Relation Status Comments Brother 1 Alive Brother 2 Brother 3 Father Maternal Grandfather Maternal Grandmother Mother Paternal Grandfather Paternal Grandmother Sister 1 Alive Sister 2 Alive Social History Tobacco Use Types Packs/Day Years Used Date Smoking Tobacco: Every Day Cigarettes 0.5 30 Smokeless Tobacco: Never Tobacco Cessation:Ready to Q uit: Not Asked; Counseling Given: Not Answered Alcohol Use Standard Drinks/Week Comments No 0 (1 standard drink = 0.6 oz pur e alcohol) Comments No Sex and Gender Information Value Date Recorded Sex Assigned at Not on file Legal Sex Female 9:59 PM CDT Gender Identity Not on file Sexual Orientation Not on file 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 Not on file Not on fi le Last Filed Vital Signs Vital Sign Reading Time Taken Comments Blood Pressure 142/62 04/15/2019 4:37 AM COUNTER POCKET SEWER Pulse 61 04/15/2019 4:37 AM COUNTER POCKET SEWER Temperature 37.3 C (99.1 F) 04/15/2019 4:37 AM COUNTER POCKET SEWER Respiratory Rate 18 04/15/2019 4:37 AM COUNTER POCKET SEWER Oxygen Saturation 96% 04/15/2019 4:37 AM COUNTER POCKET SEWER Inhaled Oxygen Concentration - - Weight 86.2 kg (190 lb) 01/30/2023 10:15 AM CDT Height 160 cm (5' 3 ) 01/30/2023 10:15 AM CDT Body Mass Index 33.66 01/30/2023 10:15 AM CDT Plan of Treatment Health Maintenance Due Date Last Done Comments Colorectal Cancer Screening Colonoscopy (10 Years) 1953 Hepatitis C 08/04/1971 DTaP, Tdap and Td Vaccines ( 1 - Tdap) 1972 Mammogram Screening 1993 RSV Immunization or 60+ Years (1 - Risk 60-74 years 1-dose series) 2013 Zoster Vaccines (2 of 3) 06/24/2014 04/29/2014 Pneumococcal Vaccine: 65+ Ye ars (2 of 2 - PPSV23 or PCV20) 02/03/2015 12/09/2014 Annual Medicare Wellness Visit 2018 Dexa Scan (General) 2018 COVID-19 Vaccine ( - 2023-2 5 season) 2024 PHQ-2 (Physician [place]) 05/13/2024 Meningococcal B Vaccine Aged Out No l onger eligible based on patient's age to complete this topic Meningococcal Vaccine Aged Out No bharati zachary eligible based on patient's age to complete this topic RSV Immunizations Under 20 Months Aged Out No longer eligible based on patient's age to complete this topic Medical Devices Implanted Type Area Stained Glass Glazier Device Identifier Shelf Expiration Date Model / Serial / Lot Cement Simplex Hv W/Gentamicin - [id number] Implanted:Qty: 1 on 04/13/2019 by Carlos Alanis MD at [facility] Right: Knee [employer] DIV [employer]UJ 12/10/2020 6195-1-010 / / [id number] Cement Simplex Hv W/Gentamicin - [id number] Implanted:Qty: 1 on 04/13/2019 by Carlos Alanis MD at [facility] Right: Knee [employer] 06/12/2020 6195-1-010 / / [id number] Modular Stem Cemented Implanted:Qty: 1 on 04/13/2019 by Carlos Alanis MD at [facility] Right: Knee 04/11/2027 [id number] / / [id number] Tray Depuy Sigma Tibial Size 3 - [id number] Implanted:Qty: 1 on 04/13/2019 by Carlos Alanis MD at [facility] Right: Knee DEPUY 12/10/2028 [id number] / / [id number] Femur Posterior Stabilized Depuy Size 4 Right - [id number] Implanted:Qty: 1 on 04/13/2019 by Carlos Alanis MD at [facility] Right: Knee DEPUY 12/11/2027 [id number] / / [id number] Dome Depuy Oval Patella 3-Peg 32mm - [id number] Implanted:Qty: 1 on 04/13/2019 by Carlos Alanis MD at [facility] Right: Knee DEPUY 01/10/2023 [id number] / / [id number] Insert Depuy Sigma Tibial Size 3 12.5mm - [id number] Implanted:Qty: 1 on 04/13/2019 by Carlos Alanis MD at [facility] Right: Knee DEPUY 07/11/2023 [id number] / / [id number] Insurance GENERIC WORKMANS COMP AETNA [facility] Care Teams Room Server Relationship Specialty Start Date End Date Kris Hussein MD [address] [place] [id number] PCP - General INTERNAL MEDICINE 12/10/16 Cheryl Ordoñez MD [address] [facility] [address] [place] [address] EP Expressive Art Therapist CLINICAL CARDIAC ELECTROPHYSIOLOGY 12/10/16
--- OUTSIDE RECORDS SUMMARY | 2024-08-20 14:18 | XMS_ITS | Encounter Summary ---
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 No / Unsure 04/01/2020 8:42 AM GINNING OPERATOR documented as of this encounter Functional Status * RETIRED Are you deaf or do you have serious difficulty hearing Answer Date of Assessment Author Status No 04/13/2019 12:57 PM GINNING OPERATOR Acti ve * RETIRED Are you blind or do you have serious difficulty seeing, even when wearing glasses? Answer Date of Assessment Author Status No 04/13/2019 12:57 PM GINNING OPERATOR Acti ve * Do you have serious [...] on filedocumented in this encounter Care Teams Preschool Program Director Relationship Specialty Start Date End Date Kris Hussein MD [address] [place] [address] PCP - General INTERNAL MEDICINE 12/10/16 Cheryl Ordoñez MD [address] [facility] [address] [place] [address] EP Hub Associate CLINICAL CARDIAC ELECTROPHYSIOLOGY 12/10/16 documented as of this encounter
--- OUTSIDE RECORDS SUMMARY | 2024-08-20 14:19 | XMS_ITS | Encounter Summary ---
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 Answer Date of Assessment Author Status No 04/13/2019 12:57 PM JOVI Acti ve * Do you have serious [...] on filedocumented in this encounter Care Teams Head Of Marketing Adometry Relationship Specialty Start Date End Date Kris Hussein MD [address] [place] [address] PCP - General INTERNAL MEDICINE 12/10/16 Cheryl Ordoñez MD [address] [facility] [address] [place] [address] EP Grain Trader CLINICAL CARDIAC ELECTROPHYSIOLOGY 12/10/16 documented as of this encounter
== END 2024-08-20 13:50 | disposition home or self-care (01) ==
LOC: CHSIMG 13:50
PROVIDERS: PCP Internal Medicine; Visit Provider Internal Medicine
DX: Z12.31 Encounter for screening mammogram for malignant neoplasm of breast (principal)
CPT/HCPCS: 77063; 77067

== ENCOUNTER 2024-08-27 09:16 | Outpatient (CLI) | payer MEDICARE, SELFPAY ==
--- OUTSIDE RECORDS SUMMARY | 2024-08-27 09:46 | XMS_ITS | Clinical Summary ---
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 on file Not on fi le Last Filed Vital Signs Vital Sign Reading Time Taken Comments Blood Pressure 142/62 04/15/2019 4:37 AM SAFETY DIRECTOR Pulse 61 04/15/2019 4:37 AM SAFETY DIRECTOR Temperature 37.3 C (99.1 F) 04/15/2019 4:37 AM SAFETY DIRECTOR Respiratory Rate 18 04/15/2019 4:37 AM SAFETY DIRECTOR Oxygen Saturation 96% 04/15/2019 4:37 AM SAFETY DIRECTOR Inhaled Oxygen Concentration - - Weight 86.2 [...] (2 of 3) 06/24/2014 04/29/2014 Pneumococcal Vaccine: 50+ Ye ars (2 of 2 - PPSV23) 02/03/2015 12/09/2014 Annual Medicare Wellness Visit 2018 Dexa Scan (General) 2018 COVID-19 Vaccine ( - 2023-2 5 season) 2024 PHQ-2 (Physician [place]) 05/13/2024 Meningococcal B Vaccine Aged Out No l onger eligible based on patient's age to complete this topic Meningococcal Vaccine Aged Out No bharati zachary eligible based on patient's age to complete this topic RSV Immunizations Under 20 Months Aged Out No longer eligible based on patient's age to complete this topic Medical Devices Implanted Type Area Wet Sander Device Identifier Shelf Expiration Date Model / Serial / Lot Cement Simplex Hv W/Gentamicin - [id number] Implanted:Qty: 1 on 04/13/2019 by Carlos Alanis MD at [facility] Right: Knee [employer] 12/10/2020 6195-1-010 / / [id number] Cement Simplex Hv W/Gentamicin - [id number] Implanted:Qty: 1 on 04/13/2019 by Carlos Alanis MD at [facility] Right: Knee [employer] 06/12/2020 6195-1-010 / / [id number] Modular Stem Cemented Implanted:Qty: 1 on 04/13/2019 by Carlos Alanis MD at [facility] Right: Knee 04/11/2027 [id number] / / [id number] Tray Depuy Sigma Tibial Size 3 - [id number] Implanted:Qty: 1 on 04/13/2019 by Carlos Alanis MD at [facility] Right: Knee DEPUY 12/10/2028 [id number] / / [id number] Femur Posterior Stabilized Depuy Size 4 Right - [id number] Implanted:Qty: 1 on 04/13/2019 by Carlos Alanis MD at [facility] Right: Knee DEPUY 12/11/2027 [id number] / / [id number] Dome Depuy Oval Patella 3-Peg 32mm - [id number] Implanted:Qty: 1 on 04/13/2019 by Carlos Alanis MD at [facility] Right: Knee DEPUY 01/10/2023 [id number] / / [id number] Insert Depuy Sigma Tibial Size 3 12.5mm - [id number] Implanted:Qty: 1 on 04/13/2019 by Carlos Alanis MD at [facility] Right: Knee DEPUY 07/11/2023 [id number] / / [id number] Insurance GENERIC WORKMANS COMP AETNA [facility] Care Teams Supervisor Reclamation Relationship Specialty Start Date End Date Kris Hussein MD [address] [place] [address] PCP - General INTERNAL MEDICINE 12/10/16 Cheryl Ordoñez MD [address] [facility] [address] [place] [address] EP Combination Presser CLINICAL CARDIAC ELECTROPHYSIOLOGY 12/10/16
--- OUTSIDE RECORDS SUMMARY | 2024-08-27 09:46 | XMS_ITS | Encounter Summary ---
Author Organization 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 on file Not on fi le documented as of this encounter Functional Status * RETIRED Are you deaf or do you have serious difficulty hearing Answer Date of Assessment Author Status No 04/13/2019 12:57 PM MATCHING MACHINE OPERATOR Acti ve * RETIRED Are you [...] on filedocumented in this encounter Care Teams Skin Grader Relationship Specialty Start Date End Date Kris Hussein MD [address] [place] [address] PCP - General INTERNAL MEDICINE 12/10/16 Cheryl Ordoñez MD [address] [facility] [address] [place] [address] EP Flux Tube Attendant CLINICAL CARDIAC ELECTROPHYSIOLOGY 12/10/16 documented as of this encounter
--- OUTSIDE RECORDS SUMMARY | 2024-08-27 09:46 | XMS_ITS | Encounter Summary ---
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 No / Unsure 04/01/2020 8:42 AM SEPARATOR TENDER documented as of this encounter Functional Status * RETIRED Are you deaf or do you have serious difficulty hearing Answer Date of Assessment Author Status No 04/13/2019 12:57 PM SEPARATOR TENDER Acti ve * RETIRED Are you blind or do you have serious difficulty seeing, even when wearing glasses? Answer Date of Assessment Author Status No 04/13/2019 12:57 PM SEPARATOR TENDER Acti ve * Do you have serious [...] on filedocumented in this encounter Care Teams Solder Cream Maker Relationship Specialty Start Date End Date Kris Hussein MD [address] [place] [address] PCP - General INTERNAL MEDICINE 12/10/16 Cheryl Ordoñez MD [address] [facility] [address] [place] [address] EP Separations Scientist CLINICAL CARDIAC ELECTROPHYSIOLOGY 12/10/16 documented as of this encounter
--- OUTSIDE RECORDS SUMMARY | 2024-08-27 09:46 | XMS_ITS | Encounter Summary ---
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 Answer Date of Assessment Author Status No 04/13/2019 12:57 PM SHOESHINER Acti ve * Do you have serious [...] on filedocumented in this encounter Care Teams Ppap Coordinator Relationship Specialty Start Date End Date Kris Hussein MD [address] [place] [address] PCP - General INTERNAL MEDICINE 12/10/16 Cheryl Ordoñez MD [address] [facility] [address] [place] [address] EP Nurse Sitter CLINICAL CARDIAC ELECTROPHYSIOLOGY 12/10/16 documented as of this encounter
[2024-08-27 09:47] LABS: Hematocrit 42.8 % (35.0-42.0); Mean Corpuscular HGB Conc 32.7 g/dL (32-36); Mean Corpuscular Hemoglobin 31.3 pg (27.0-31.0); Mean Corpuscular Volume 95.5 fL (78.0-102.0); Mean Platelet Volume 11.1 fl (9.2-11.8); Platelet Count Result 176 K/mm3 (150-420); Red Blood Count 4.48 M/mm3 (4.20-5.40); Red Cell Distribution Width 13.1 % (11.6-14.4); White Blood Count 5.8 K/mm3 (4.8-10.8)
[2024-08-27 09:48] LABS: Add Urine Microscopic? YES; Appearance Urine Clear (Clear); Bilirubin Urine Negative (Negative); Blood Urine 2+ (Negative); Color Urine Light Yellow (Yellow); Glucose Urine UA Negative (Negative); Ketones Urine Negative (Negative); Leukocyte Esterase Ur Negative (Negative); Nitrate Urine Negative (Negative); Protein Urine Negative (Negative); Specific Grav Ur 1.025 (1.010-1.020); pH Urine 5.5 (5.0-8.0)
[2024-08-27 10:02] LABS: Creatinine Urine 128.04 mg/dL (40-278); Hemoglobin A1C 6.1 % (<5.7); MALB Creatinine Ratio 10.1 mg/g (0-30); Microalbumin Urine Random < 13.0 mg/L; Prothrombin Time 20.8 Seconds (9.50-12.1)
[2024-08-27 10:09] LABS: Bacteria Urine Trace /hpf; Squamous Epithelial Cell Urine Moderate /hpf (Few); WBC Urine None seen /hpf (0-3)
[2024-08-27 10:41] LABS: Alanine Aminotransferase 74 U/L (14-59); Albumin Level 3.8 g/dL (3.4-5.0); Alkaline Phosphatase 90 U/L (46-116); Anion Gap 10 mmol/L (4-12); Aspartate Amino Transferase 59 U/L (15-37); Bilirubin,Total 0.9 mg/dL (0.00-1.00); Blood Urea Nitrogen 11 mg/dL (7-18); Calcium 9.5 mg/dL (8.5-10.1); Carbon Dioxide 27 mmol/L (21-32); Chloride 104 mmol/L (98-108); Estimated Glomerular Filt Rate > 60; Free T4 Free Thyroxine 1.52 ng/dL (0.76-1.46); GGT 94 U/L (5-55); Glucose 104 mg/dL (70-99); NT Pro B Type Natriuretic Pept 16 pg/mL (0-125); Osmolality Calculated 291 mOsm/kg (285-295); Sodium 141 mmol/L (136-145); Thyroid Stimulating Hormone 1.64 uIU/mL (0.36-3.74); Total Protein 7.8 g/dL (6.4-8.2)
[2024-08-27 12:55] LABS: Cholesterol 152 mg/dL (0-200); HDL Direct 68 mg/dL (40-60); LDL Cholesterol Calculated 68 mg/dL (<130); Triglycerides 80 mg/dL (0-150)
[2024-08-29 04:47] LABS: Vitamin D 25 Hydroxy 57 ng/mL (30-100)
[2024-09-01 04:48] LABS: Actin Antibody (IgG) 50 U (<20)
== END 2024-08-27 09:17 | disposition home or self-care (01) ==
LOC: CHSLAB 09:18
PROVIDERS: PCP Internal Medicine; Visit Provider Internal Medicine
DX: E03.4 Atrophy of thyroid (acquired) (principal); I10 Essential (primary) hypertension; K75.4 Autoimmune hepatitis; E78.2 Mixed hyperlipidemia; R31.29 Other microscopic hematuria; M81.0 Age-related osteoporosis without current pathological fracture; I48.0 Paroxysmal atrial fibrillation; R06.00 Dyspnea, unspecified; R73.01 Impaired fasting glucose
CPT/HCPCS: 36415; 80053; 80061; 81001; 82043; 82306; 82977; 83036; 83516; 83880; 84439; 84443; 85027; 85610

== ENCOUNTER 2024-09-11 12:48 | Outpatient (CLI) | payer MEDICARE, SELFPAY ==
--- NOTE | ~2024-09-11 | CT_ITS ---
CT Scan of the Chest without Contrast: Clinical Indication: Lung cancer screening, nicotine dependence Technique: Contiguous sections were acquired throughout the chest without intravenous contrast. Dose reduction technique was used on this scan by utilizing automated exposure control and iterative recon struction technique. The dose-length product (DLP) was 102.62 mGy-cm. COMPARISON: 09/04/2023 Findings: There is no evidence of any significant mediastinal, hilar or axillary lymphadenopathy. Coronary melany ry calcifications are present. There is no evidence of pleural or pericardial effusion. The lungs are clear. No pulmonary nodules or infiltrates are noted. Images through the upper abdomen reveal moderate hiatal hernia. Probable mildly nodular contour of li chel. Impression: Lung RADS 1: Negative. 12 month follow-up screening CT advised. Suspected mild cirrhotic morphology of the liver. Moderate hiatal hernia. Reviewed, dictated and finalized at [facility]. Impression: Lung RADS 1: Negative. 12 month follow-up screening CT advised. Suspected mild cirrhotic morphology of the liver. Moderate hiatal hernia.
--- OUTSIDE RECORDS SUMMARY | 2024-09-12 13:30 | XMS_ITS | Encounter Summary ---
Author Organization [facility] Address [address] [place] [address] Care Team Providers Care Decommissioning Well Site Manager Name Role Phone Kris Hussein MD Primary Care Provider [phone] Cheryl Ordoñez MD Unavailable [phone] Encounter Details Date Type Department Care Team (Late st Contact Info) Description 12/25/2022 CallMD Message Enc [facility] [address], [facility] 1 [place] [address] Carlos Alanis MD [address] [place] [address] Visit Follow Up Social History Tobacco [...] 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 on file Not on fi le documented as of this encounter Functional Status * RETIRED Are you deaf or do you have serious difficulty hearing Answer Date of Assessment Author Status No 04/13/2019 12:57 PM TOOL AND EQUIPMENT RENTAL CLERK Acti ve * RETIRED Are you blind [...] on filedocumented in this encounter Care Teams Decommissioning Well Site Manager Relationship Specialty Start Date End Date Kris Hussein MD [address] [place] [address] PCP - General INTERNAL MEDICINE 12/10/16 Cheryl Ordoñez MD [address] [facility] [address] [place] [address] EP Racing Mechanic CLINICAL CARDIAC ELECTROPHYSIOLOGY 12/10/16 documented as of this encounter
--- OUTSIDE RECORDS SUMMARY | 2024-09-12 13:30 | XMS_ITS | Encounter Summary ---
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 No / Unsure 04/01/2020 8:42 AM INSTRUCTIONAL TECHNOLOGY TEACHER documented as of this encounter Functional Status * RETIRED Are you deaf or do you have serious difficulty hearing Answer Date of Assessment Author Status No 04/13/2019 12:57 PM INSTRUCTIONAL TECHNOLOGY TEACHER Acti ve * RETIRED Are you blind or do you have serious difficulty seeing, even when wearing glasses? Answer Date of Assessment Author Status No 04/13/2019 12:57 PM INSTRUCTIONAL TECHNOLOGY TEACHER Acti ve * Do you have serious [...] on filedocumented in this encounter Care Teams Appeals Examiner Relationship Specialty Start Date End Date Kris Hussein MD [address] [place] [address] PCP - General INTERNAL MEDICINE 12/10/16 Cheryl Ordoñez MD [address] [facility] [address] [place] [address] EP Policy Change Clerk CLINICAL CARDIAC ELECTROPHYSIOLOGY 12/10/16 documented as of this encounter
--- OUTSIDE RECORDS SUMMARY | 2024-09-12 13:30 | XMS_ITS | Clinical Summary ---
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 on file Not on fi le Last Filed Vital Signs Vital Sign Reading Time Taken Comments Blood Pressure 142/62 04/15/2019 4:37 AM DRAFTING INSTRUCTOR Pulse 61 04/15/2019 4:37 AM DRAFTING INSTRUCTOR Temperature 37.3 C (99.1 F) 04/15/2019 4:37 AM DRAFTING INSTRUCTOR Respiratory Rate 18 04/15/2019 4:37 AM DRAFTING INSTRUCTOR Oxygen Saturation 96% 04/15/2019 4:37 AM DRAFTING INSTRUCTOR Inhaled Oxygen Concentration - - Weight 86.2 [...] - 2023-2 5 season) 2024 PHQ-2 (Physician [place]) 05/13/2024 Meningococcal B Vaccine Aged Out No l onger eligible based on patient's age to complete this topic Meningococcal Vaccine Aged Out No bharati zachary eligible based on patient's age to complete this topic RSV Immunizations Under 20 Months Aged Out No longer eligible based on patient's age to complete this topic Medical Devices Implanted Type Area Steep Tender Device Identifier Shelf Expiration Date Model / Serial / Lot Cement Simplex Hv W/Gentamicin - [id number] Implanted:Qty: 1 on 04/13/2019 by Carlos Alanis MD at [facility] Right: Knee [employer] 12/10/2020 6195-1-010 / / [id number] Cement Simplex Hv W/Gentamicin - [id number] Implanted:Qty: 1 on 04/13/2019 by Carlos Alanis MD at [facility] Right: Knee [employer] 06/12/2020 6195-1-010 / / [id number] Modular Stem Cemented Implanted:Qty: 1 on 04/13/2019 by Carlos Alanis MD at [facility] Right: Knee 04/11/2027 [id number] / / [id number] Tray Depuy Sigma Tibial Size 3 - [id number] Implanted:Qty: 1 on 04/13/2019 by Carlos Alanis MD at [facility] Right: Knee DEPUY 12/10/2028 [id number] / / [id number] Femur Posterior Stabilized Depuy Size 4 Right - [id number] Implanted:Qty: 1 on 04/13/2019 by Carlos Alanis MD at [facility] Right: Knee DEPUY 12/11/2027 [id number] / / [id number] Dome Depuy Oval Patella 3-Peg 32mm - [id number] Implanted:Qty: 1 on 04/13/2019 by Carlos Alanis MD at [facility] Right: Knee DEPUY 01/10/2023 [id number] / / [id number] Insert Depuy Sigma Tibial Size 3 12.5mm - [id number] Implanted:Qty: 1 on 04/13/2019 by Carlos Alanis MD at [facility] Right: Knee DEPUY 07/11/2023 [id number] / / [id number] Insurance GENERIC WORKMANS COMP AETNA [facility] Care Teams Bridge Attacher Relationship Specialty Start Date End Date Kris Hussein MD [address] [place] [address] PCP - General INTERNAL MEDICINE 12/10/16 Cheryl Ordoñez MD [address] [facility] [address] [place] [address] EP Passenger Barge Master CLINICAL CARDIAC ELECTROPHYSIOLOGY 12/10/16
--- OUTSIDE RECORDS SUMMARY | 2024-09-12 13:30 | XMS_ITS | Encounter Summary ---
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 Answer Date of Assessment Author Status No 04/13/2019 12:57 PM MACHINE FEEDER RAW STOCK Acti ve * Do you have serious [...] on filedocumented in this encounter Care Teams Tricot Knitting Machine Operator Relationship Specialty Start Date End Date Kris Hussein MD [address] [place] [address] PCP - General INTERNAL MEDICINE 12/10/16 Cherly Ordoñez MD [address] [facility] [address] [place] [address] EP Animal Nutritionist CLINICAL CARDIAC ELECTROPHYSIOLOGY 12/10/16 documented as of this encounter
== END 2024-09-11 12:49 | disposition home or self-care (01) ==
LOC: CHSIMG 12:48
PROVIDERS: PCP Internal Medicine; Visit Provider Internal Medicine
DX: Z12.2 Encounter for screening for malignant neoplasm of respiratory organs (principal); Z87.891 Personal history of nicotine dependence; K44.9 Diaphragmatic hernia without obstruction or gangrene
CPT/HCPCS: 71271

== ENCOUNTER 2024-09-17 10:12 | Outpatient (CLI) | payer MEDICARE, SELFPAY ==
--- NOTE | ~2024-09-17 | CT_ITS ---
CT of the Abdomen: Indication: Cirrhosis Technique: 2.5 mm axial scans were obtained through the abdomen following intravenous administration of 100 cc of Omnipaque 350. Dose reduction technique was used on this scan by utilizing automated ex posure control and iterative reconstruction technique. The dose-length product (DLP) was 473.36 mGy-c m. Findings: Scans through the lung bases are unremarkable. Moderate hiatal hernia present. Nodular contour of the liver is compatible cirrhotic change. No focal hepatic mass or biliary dilatat ion evident. Left hepatic lobe is relatively atrophic. The spleen, pancreas, gallbladder, adrenals an d kidneys are within normal limits. There are atherosclerotic calcifications of the aorta. No lympha denopathy. Visualized bowel loops are unremarkable. No ascites. Bilateral L5 pars interarticularis defects are p resent. Impression: Cirrhotic morphology of the liver, as detailed above. No hepatic mass or biliary dilatation seen. Reviewed, dictated and finalized at location . Impression: Cirrhotic morphology of the liver, as detailed above. No hepatic mass or biliar y dilatation seen.
--- OUTSIDE RECORDS SUMMARY | 2024-09-17 10:33 | XMS_ITS | Encounter Summary ---
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 on file Not on fi le documented as of this encounter Functional Status * RETIRED Are you deaf or do you have serious difficulty hearing Answer Date of Assessment Author Status No 04/13/2019 12:57 PM HOTEL ASSOCIATE Acti ve * RETIRED Are you blind [...] on filedocumented in this encounter Care Teams Door Assembler Relationship Specialty Start Date End Date Kris Hussein MD [address] [place] [address] PCP - General INTERNAL MEDICINE 12/10/16 Cheryl Ordoñez MD [address] [facility] [address] [place] [address] EP C Architect CLINICAL CARDIAC ELECTROPHYSIOLOGY 12/10/16 documented as of this encounter
--- OUTSIDE RECORDS SUMMARY | 2024-09-17 10:33 | XMS_ITS | Clinical Summary ---
Author Organization [facility] Address [address] [place] [address] Care Team Providers Care Lion Hunter Name Role Phone Kris Hussein MD Primary Care Provider Cheryl Ordoñez MD Unavailable [phone] Allergies Active Allergy Reactions Criticality Noted Date [...] Comments Blood Pressure 142/62 04/15/2019 4:37 AM FLIGHT STEWARD Pulse 61 04/15/2019 4:37 AM FLIGHT STEWARD Temperature 37.3 C (99.1 F) 04/15/2019 4:37 AM FLIGHT STEWARD Respiratory Rate 18 04/15/2019 4:37 AM FLIGHT STEWARD Oxygen Saturation 96% 04/15/2019 4:37 AM FLIGHT STEWARD Inhaled Oxygen Concentration - - Weight 86.2 [...] - 2023-2 5 season) 2024 PHQ-2 (Physician [place]) 05/13/2024 Meningococcal B Vaccine Aged Out No l onger eligible based on patient's age to complete this topic Meningococcal Vaccine Aged Out No bharati zachary eligible based on patient's age to complete this topic RSV Immunizations Under 20 Months Aged Out No longer eligible based on patient's age to complete this topic Medical Devices Implanted Type Area Bar Hostess Device Identifier Shelf Expiration Date Model / Serial / Lot Cement Simplex Hv W/Gentamicin - [id number] Implanted:Qty: 1 on 04/13/2019 by Carlos Alanis MD at [facility] Right: Knee [employer] 12/10/2020 6195-1-010 / / [id number] Cement Simplex Hv W/Gentamicin - [id number] Implanted:Qty: 1 on 04/13/2019 by Cralos Alanis MD at [facility] Right: Knee [employer] 06/12/2020 6195-1-010 / / [id number] Modular Stem Cemented Implanted:Qty: 1 on 04/13/2019 by Carlos Alanis MD at [facility] Right: Knee 04/11/2027 [id number] / / [id number] Tray Depuy Sigma Tibial Size 3 - [id number] Implanted:Qty: 1 on 04/13/2019 by Carlos Alanis MD at [facility] Right: Knee DEPUY 12/10/2028 [id number] / / [id number] Femur Posterior Stabilized Depuy Size 4 Right - [id number] Implanted:Qty: 1 on 04/13/2019 by Carlos Alanis MD at [facility] Right: Knee DEPUY 12/11/2027 [id number] / / [id number] Dome Depuy Oval Patella 3-Peg 32mm - [id number] Implanted:Qty: 1 on 04/13/2019 by Carlos Alanis MD at [facility] Right: Knee DEPUY 01/10/2023 [id number] / / [id number] Insert Depuy Sigma Tibial Size 3 12.5mm - [id number] Implanted:Qty: 1 on 04/13/2019 by Carlos Alanis MD at [facility] Right: Knee DEPUY 07/11/2023 [id number] / / [id number] Insurance GENERIC WORKMANS COMP AETNA [facility] Care Teams Lion Hunter Relationship Specialty Start Date End Date Kris Hussein MD [address] [place] [address] PCP - General INTERNAL MEDICINE 12/10/16 Cheryl Ordoñez MD [address] [facility] [address] [place] [address] EP Educational Technologist CLINICAL CARDIAC ELECTROPHYSIOLOGY 12/10/16
--- OUTSIDE RECORDS SUMMARY | 2024-09-17 10:33 | XMS_ITS | Encounter Summary ---
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 No / Unsure 04/01/2020 8:42 AM HOGSHEAD STRIPPER documented as of this encounter Functional Status * RETIRED Are you deaf or do you have serious difficulty hearing Answer Date of Assessment Author Status No 04/13/2019 12:57 PM HOGSHEAD STRIPPER Acti ve * RETIRED Are you blind or do you have serious difficulty seeing, even when wearing glasses? Answer Date of Assessment Author Status No 04/13/2019 12:57 PM HOGSHEAD STRIPPER Acti ve * Do you have serious [...] on filedocumented in this encounter Care Teams Baker Bread Relationship Specialty Start Date End Date Kris Hussein MD [address] [place] [address] PCP - General INTERNAL MEDICINE 12/10/16 Cheryl Ordoñez MD [address] [facility] [address] [place] [address] EP Early Childhood Teacher Assistant CLINICAL CARDIAC ELECTROPHYSIOLOGY 12/10/16 documented as of this encounter
--- OUTSIDE RECORDS SUMMARY | 2024-09-17 10:33 | XMS_ITS | Encounter Summary ---
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 Answer Date of Assessment Author Status No 04/13/2019 12:57 PM APARTMENT COORDINATOR Acti ve * Do you have serious [...] on filedocumented in this encounter Care Teams Plastic Finisher Relationship Specialty Start Date End Date Kris Hussein MD [address] [place] [address] PCP - General INTERNAL MEDICINE 12/10/16 Cheryl Ordoñez MD [address] [facility] [address] [place] [address] EP Duplicating Machine Operator CLINICAL CARDIAC ELECTROPHYSIOLOGY 12/10/16 documented as of this encounter
== END 2024-09-17 10:13 | disposition home or self-care (01) ==
LOC: CHSIMG 10:15
PROVIDERS: PCP Internal Medicine; Visit Provider Internal Medicine
DX: K74.60 Unspecified cirrhosis of liver (principal)
CPT/HCPCS: 74160; Q9967

== ENCOUNTER 2024-10-28 09:29 | Outpatient (CLI) | payer MEDICARE, SELFPAY ==
[2024-10-28 10:12] LABS: INR 2.6; Prothrombin Time 26.2 Seconds (9.50-12.1)
--- OUTSIDE RECORDS SUMMARY | 2024-10-28 10:24 | XMS_ITS | Encounter Summary ---
Author Organization 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 on file Not on fi le documented as of this encounter Functional Status * RETIRED Are you deaf or do you have serious difficulty hearing Answer Date of Assessment Author Status No 04/13/2019 12:57 PM MOTION PICTURE EQUIPMENT SUPERVISOR Acti ve * RETIRED Are you blind [...] on filedocumented in this encounter Care Teams Salad Bar Clerk Relationship Specialty Start Date End Date Kris Hussein MD [address] [place] [address] PCP - General INTERNAL MEDICINE 12/10/16 Cheryl Ordoñez MD [address] [facility] [address] [place] [address] EP Concession Supervisor CLINICAL CARDIAC ELECTROPHYSIOLOGY 12/10/16 documented as of this encounter
--- OUTSIDE RECORDS SUMMARY | 2024-10-28 10:24 | XMS_ITS | Encounter Summary ---
Author Organization [facility] Address [address] [place] [address] Care Team Providers Care Nurse Epidemiologist Name Role Phone Kris Hussein MD Primary Care Provider [phone] Cheryl Ordoñez MD Unavailable [phone] Encounter Details Date Type Department Care Team (Late st Contact Info) Description 04/01/2020 Cause.it Message Enc [facility] [address], [address] [place] [address] Carlos Alanis MD [address] [place] [address] Visit Follow Up Social History Tobacco [...] COVID-19? No / Unsure 04/01/2020 8:42 AM OUT OF TOWN COLLECTION CLERK documented as of this encounter Functional Status * RETIRED Are you deaf or do you have serious difficulty hearing Answer Date of Assessment Author Status No 04/13/2019 12:57 PM OUT OF TOWN COLLECTION CLERK Acti ve * RETIRED Are you blind or do you have serious difficulty seeing, even when wearing glasses? Answer Date of Assessment Author Status No 04/13/2019 12:57 PM OUT OF TOWN COLLECTION CLERK Acti ve * Do you have serious [...] on filedocumented in this encounter Care Teams Nurse Epidemiologist Relationship Specialty Start Date End Date Kris Hussein MD [address] [place] [address] PCP - General INTERNAL MEDICINE 12/10/16 Cheryl Ordoñez MD [address] [facility] [address] [place] [address] EP Patient Observation Assistant CLINICAL CARDIAC ELECTROPHYSIOLOGY 12/10/16 documented as of this encounter
--- OUTSIDE RECORDS SUMMARY | 2024-10-28 10:24 | XMS_ITS | Clinical Summary ---
Author Organization [facility] Address [address] [place] [address] Care Team Providers Care Walking Dragline Oiler Name Role Phone Kris Hussein MD Primary Care Provider [phone] Cheryl Ordoñez MD Unavailable [phone] Allergies Active Allergy Reactions Criticality Noted Date [...] Comments Blood Pressure 142/62 04/15/2019 4:37 AM CASINO ASSISTANT MANAGER Pulse 61 04/15/2019 4:37 AM CASINO ASSISTANT MANAGER Temperature 37.3 C (99.1 F) 04/15/2019 4:37 AM CASINO ASSISTANT MANAGER Respiratory Rate 18 04/15/2019 4:37 AM CASINO ASSISTANT MANAGER Oxygen Saturation 96% 04/15/2019 4:37 AM CASINO ASSISTANT MANAGER Inhaled Oxygen Concentration - - Weight 86.2 kg (190 lb) 01/30/2023 10:15 AM CDT Height 160 cm (5' 3) 01/30/2023 10:15 AM CDT Body Mass Index [...] - 2023-2 5 season) 2024 PHQ-2 (Physician [place]) 05/13/2024 Meningococcal B Vaccine Aged Out No l onger eligible based on patient's age to complete this topic Meningococcal Vaccine Aged Out No bharati zachary eligible based on patient's age to complete this topic RSV Immunizations Under 20 Months Aged Out No longer eligible based on patient's age to complete this topic Medical Devices Implanted Type Area Classifying Machine Operator Device Identifier Shelf Expiration Date Model / Serial / Lot Cement Simplex Hv W/Gentamicin - [id number] Implanted:Qty: 1 on 04/13/2019 by Carlos Alanis MD at [facility] Right: Knee [employer] 12/10/2020 6195-1-010 / / [id number] Cement Simplex Hv W/Gentamicin - [id number] Implanted:Qty: 1 on 04/13/2019 by Carlos Alanis MD at [facility] Right: Knee [employer] 06/12/2020 6195-1-010 / / [id number] Modular Stem Cemented Implanted:Qty: 1 on 04/13/2019 by Carlos Alanis MD at [facility] Right: Knee 04/11/2027 [id number] / / [id number] Tray Depuy Sigma Tibial Size 3 - [id number] Implanted:Qty: 1 on 04/13/2019 by Carlos Alanis MD at [facility] Right: Knee DEPUY 12/10/2028 [id number] / / [id number] Femur Posterior Stabilized Depuy Size 4 Right - [id number] Implanted:Qty: 1 on 04/13/2019 by Carlos Alanis MD at [facility] Right: Knee DEPUY 12/11/2027 [id number] / / [id number] Dome Depuy Oval Patella 3-Peg 32mm - [id number] Implanted:Qty: 1 on 04/13/2019 by Carlos Alanis MD at [facility] Right: Knee DEPUY 01/10/2023 [id number] / / [id number] Insert Depuy Sigma Tibial Size 3 12.5mm - [id number] Implanted:Qty: 1 on 04/13/2019 by Carlos Alanis MD at [facility] Right: Knee DEPUY 07/11/2023 [id number] / / [id number] Insurance GENERIC WORKMANS COMP [facility]ETNA [facility] Care Teams Walking Dragline Oiler Relationship Specialty Start Date End Date Kris Hussein MD [address] [place] [address] PCP - General INTERNAL MEDICINE 12/10/16 Cheryl Ordoñez MD [address] [facility] [address] [place] [address] EP Electrical Tester CLINICAL CARDIAC ELECTROPHYSIOLOGY 12/10/16
[2024-10-29 18:59] LABS: Immunoglobulin G 2069 mg/dL (600-1540)
[2024-11-03 12:58] LABS: LKM 1 Antibody. <=20.0 U (<=20.0)
[2024-11-03 18:18] LABS: TPMT Activity. 14
[2024-11-06 11:59] LABS: ALT 50 U/L (6-29); Alpha-2-Macroglobulin 231 mg/dL (106-279); Apolipoprotein A1 159 mg/dL (101-198); Fibrosis Score 0.47; Fibrosis Stage F1-F2; GGT 56 U/L (3-65); Haptoglobin 61 mg/dL (43-212); Necroinflammat Act Grade A1; Total Bilirubin 0.5 mg/dL (0.2-1.2)
== END 2024-10-28 09:30 | disposition home or self-care (01) ==
LOC: CHSLAB 09:30
PROVIDERS: PCP Internal Medicine; Visit Provider Nurse Practitioner Family
DX: K74.60 Unspecified cirrhosis of liver (principal); K75.4 Autoimmune hepatitis; R79.89 Other specified abnormal findings of blood chemistry; I48.0 Paroxysmal atrial fibrillation
CPT/HCPCS: 36415; 81596; 82657; 82784; 84433; 85610; 86376

== ENCOUNTER 2024-11-18 13:31 | Outpatient (CLI) | payer MEDICARE, SELFPAY ==
--- NOTE | ~2024-11-18 | US_ITS ---
EXAMINATION: US carotid duplex BI DATE: 11/18/2024 14:29 CDT INDICATION: Carotid stenosis suspected clinically TECHNIQUE: Grayscale, color Doppler, and pulsed Doppler images of the cervical carotid arteries were obtained. The degree of vessel stenosis is placed in one of the following categories: normal, <50%, 50-69%, >=7 0% but less than near-occlusion, near-occlusion, or total occlusion. Note that percent stenosis relative to normal distal artery lumen diameter is indirectly measured fro m velocity measurements as described originally by Luis, et al. Radiology 2003; 229:340-346 and upda georgette by Too Herrera et al STROKE 2012;43(3);915-921. COMPARISON: None. FINDINGS: There is mild atherosclerosis of both carotid arteries. Peak systolic velocity (in cm/s) is detailed below RIGHT: Right common carotid artery (CCA): 72 cm/s. Right internal carotid artery (ICA) PSV: 83 cm/s. Right ICA end-diastolic velocity (EDV): 35 cm/s. Right ICA/CCA PSV ratio is 1.1. Right external carotid artery (ECA): 89cm/s. There is antegrade flow in the right vertebral artery LEFT: Left common carotid artery (CCA): 77 cm/s. Left internal carotid artery (ICA) PSV: 72 cm/s. Left ICA end-diastolic velocity (EDV): 29 cm/s. Left ICA/CCA PSV ratio is 1.0. Left external carotid artery (ECA): 76cm/s. There is antegrade flow in the left vertebral artery. IMPRESSION: 1. Less than 50% stenosis in the right internal carotid artery. 2. Less than 50% stenosis in the left internal carotid artery. Reviewed, dictated and finalized at location A.
--- NOTE | ~2024-11-18 | DEXA_ITS ---
Bone Density Report Name: RADHA DUKE Age: 69 Sex: Female Ethnicity: White Date of : 1955 Indication: osteopenia; monitoring treatment; height loss; hysterectomy; Referring Provider: Kris Hussein Study: Bone densitometry was performed. Exam Date: November 18, 2024 Accession number: [id number] Bone Density: Region BMD T-score Z-score Classification AP Spine(L1-L4) 0.974 -0.7 1.5 Normal Femoral Neck (Left) 0.495 -3.2 -1.3 Osteoporosis Total Hip (Left) 0.754 -1.5 0.0 Osteopenia Femoral Neck (Right) 0.630 -2.0 -0.1 Osteopenia Total Hip (Right) 0.771 -1.4 0.2 Osteopenia Femoral Neck Mean 0.562 -2.6 -0.7 Osteoporosis Total Hip Mean 0.763 -1.5 0.1 Osteopenia World Health Organization criteria for BMD impression classify patients as: Normal (T-score at or above -1.0), Osteopenia (T-score between -1.0 and -2.5), or Osteoporosis (T-score at or below -2.5). 10-year Fracture Risk: FRAX not reported because: Some T-score for Spine Total or Hip Total or Femoral Neck at or below -2.5 Treated for osteoporosis Previous Exams: Region Exam Age BMD T-score BMD Change BMD Change Date g/cm2 vs Baseline vs Previous AP Spine (L1-L4) 11/18/2024 69 0.974 -0.7 0.108 (12.4%)# 0.108 (12.4%)# 03/23/2016 60 0.866 -1.6 Total Hip(Left) 11/18/2024 69 0.754 -1.5 -0.010 (-1.3%) 0.008 (1.0%) 10/28/2023 68 0.747 -1.6 -0.017 (-2.3%) 0.044 (6.3%)* 07/29/2020 64 0.702 -2.0 -0.062 (-8.1%) -0.062 (-8.1%) 03/23/2016 60 0.764 -1.5 Total Hip(Right) 11/18/2024 69 0.771 -1.4 0.070 (10.0%)* 0.054 (7.5%)* 10/28/2023 68 0.718 -1.8 0.016 (2.3%) 0.016 (2.3%) 07/29/2020 64 0.702 -2.0 *Denotes significance at 95% confidence level, LSC for AP Spine = 0.022 g/cm2, LSC for Total Hip = 0.027 g/cm2 # Denotes dissimilar scan types or analysis methods Clinical Information Provided by Patient: Smokes Is being treated for osteoporosis Has used the following medications: Reclast (i.e. zoledronate), Vitamin D, Calcium Has the following medical conditions: Hysterectomy Patient maximum height was 64 Menopause Age: 38 No regular weight bearing exercise Does not regularly consume dairy products Drinks caffeinated beverages Onset of menses at age 9 Number of children 3 Impression: The patient has osteoporosis, based on the Left Femoral Neck T-score. The patient has risk factors, including: smoking. No significant bone loss was observed. Discussion: PATIENT UNDER TREATMENT WITH NO SIGNIFICANT BMD LOSS SINCE LAST EXAM. In an untreated patient, BMD typically declines with age. A lack of decline or gain is usually a sign that treatment is efficacious and fracture risk is reduced. It is important to ask patients whether they are taking their medications and to encourage continued and appropriate compliance with their osteoporosis therapies to reduce fracture risk. It is also important to review their risk factors and encourage appropriate calcium and vitamin D intakes, exercise, fall prevention and other lifestyle measures. Follow-Up: Consider a repeat BMD and Vertebral Fracture Assessment (VFA) exam in 2 years or sooner if medically necessary, to reassess this patient's status. Reported by: DIOGENES on 11/18/2024 2:03:00 PM. Reviewed, dictated and finalized at location A.
--- OUTSIDE RECORDS SUMMARY | 2024-11-18 13:46 | XMS_ITS | Encounter Summary ---
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 No / Unsure 04/01/2020 8:42 AM RELAY ENGINEER documented as of this encounter Functional Status * RETIRED Are you deaf or do you have serious difficulty hearing Answer Date of Assessment Author Status No 04/13/2019 12:57 PM RELAY ENGINEER Acti ve * RETIRED Are you blind or do you have serious difficulty seeing, even when wearing glasses? Answer Date of Assessment Author Status No 04/13/2019 12:57 PM RELAY ENGINEER Acti ve * Do you have serious [...] on filedocumented in this encounter Care Teams Retail Custodial Associate Relationship Specialty Start Date End Date Kris Hussein MD [address] [place] [address] PCP - General INTERNAL MEDICINE 12/10/16 Cheryl rOdoñez MD [address] [facility] [address] [place] [address] EP Cannon Crewmember CLINICAL CARDIAC ELECTROPHYSIOLOGY 12/10/16 documented as of this encounter
--- OUTSIDE RECORDS SUMMARY | 2024-11-18 13:46 | XMS_ITS | Clinical Summary ---
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 on file Not on fi le Last Filed Vital Signs Vital Sign Reading Time Taken Comments Blood Pressure 142/62 04/15/2019 4:37 AM FULL STACK WEB DEVELOPER Pulse 61 04/15/2019 4:37 AM FULL STACK WEB DEVELOPER Temperature 37.3 C (99.1 F) 04/15/2019 4:37 AM FULL STACK WEB DEVELOPER Respiratory Rate 18 04/15/2019 4:37 AM FULL STACK WEB DEVELOPER Oxygen Saturation 96% 04/15/2019 4:37 AM FULL STACK WEB DEVELOPER Inhaled Oxygen Concentration - - Weight 86.2 [...] - 2023-2 5 season) 2024 PHQ-2 (Physician [place]) 05/13/2024 Meningococcal B Vaccine Aged Out No l onger eligible based on patient's age to complete this topic Meningococcal Vaccine Aged Out No bharati zachary eligible based on patient's age to complete this topic RSV Immunizations Under 20 Months Aged Out No longer eligible based on patient's age to complete this topic Medical Devices Implanted Type Area Motorcycle Police Device Identifier Shelf Expiration Date Model / Serial / Lot Cement Simplex Hv W/Gentamicin - [id number] Implanted:Qty: 1 on 04/13/2019 by Carlos Alanis MD at [facility] Right: Knee [employer] 12/10/2020 6195-1-010 / / [id number] Cement Simplex Hv W/Gentamicin - [id number] Implanted:Qty: 1 on 04/13/2019 by Carlos Alanis MD at [facility] Right: Knee [employer] 06/12/2020 6195-1-010 / / [id number] Modular Stem Cemented Implanted:Qty: 1 on 04/13/2019 by Carlos Alanis MD at [facility] Right: Knee 04/11/2027 [id number] / / [id number] Tray Depuy Sigma Tibial Size 3 - [id number] Implanted:Qty: 1 on 04/13/2019 by Carlos Alanis MD at [facility] Right: Knee DEPUY 12/10/2028 [id number] / / [id number] Femur Posterior Stabilized Depuy Size 4 Right - [id number] Implanted:Qty: 1 on 04/13/2019 by Carlos Alanis MD at [facility] Right: Knee DEPUY 12/11/2027 [id number] / / [id number] Dome Depuy Oval Patella 3-Peg 32mm - [id number] Implanted:Qty: 1 on 04/13/2019 by Carlos Alanis MD at [facility] Right: Knee DEPUY 01/10/2023 [id number] / / [id number] Insert Depuy Sigma Tibial Size 3 12.5mm - [id number] Implanted:Qty: 1 on 04/13/2019 by Carlos Alanis MD at [facility] Right: Knee DEPUY 07/11/2023 [id number] / / [id number] Insurance GENERIC WORKMANS COMP AETNA [facility] Care Teams Computer Network Engineer Relationship Specialty Start Date End Date Kris Hussein MD [address] [place] [address] PCP - General INTERNAL MEDICINE 12/10/16 Cheryl Ordoñez MD [address] [facility] [address] [place] [address] EP Slide Fastener Repairer CLINICAL CARDIAC ELECTROPHYSIOLOGY 12/10/16
--- OUTSIDE RECORDS SUMMARY | 2024-11-18 13:46 | XMS_ITS | Encounter Summary ---
Author Organization [facility] Address [address] [place] [address] Care Team Providers Care Automatic Shirring Machine Operator Name Role Phone Kris Hussein MD Primary Care Provider [phone] Cheryl Ordoñez MD Unavailable [phone] Encounter Details Date Type Department Care Team (Late st Contact Info) Description 12/25/2022 [employer] Message Enc [facility] [address], [facility] [address] [place] [address] Carlos Alanis MD [address] [place] [address] Visit Follow Up Social History Tobacco [...] 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 on fi le documented as of this encounter Functional Status * RETIRED Are you deaf or do you have serious difficulty hearing Answer Date of Assessment Author Status No 04/13/2019 12:57 PM DIRECTOR MEDICAL SAFETY Acti ve * RETIRED Are you blind [...] on filedocumented in this encounter Care Teams Automatic Shirring Machine Operator Relationship Specialty Start Date End Date Kris Hussein MD [address] [place] [address] PCP - General INTERNAL MEDICINE 12/10/16 Cheryl Ordoñez MD [address] [facility] [address] [place] [address] EP Rotary Helper CLINICAL CARDIAC ELECTROPHYSIOLOGY 12/10/16 documented as of this encounter
--- OUTSIDE RECORDS SUMMARY | 2024-11-18 13:46 | XMS_ITS | Encounter Summary ---
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 Answer Date of Assessment Author Status No 04/13/2019 12:57 PM PAYROLL ANALYST Acti ve * Do you have serious [...] on filedocumented in this encounter Care Teams Single Ending Machine Operator Relationship Specialty Start Date End Date Kris Hussein MD [address] [place] [address] PCP - General INTERNAL MEDICINE 12/10/16 Cheryl Ordoñez MD [address] [facility] [address] [place] [address] EP Supervisor Beet End CLINICAL CARDIAC ELECTROPHYSIOLOGY 12/10/16 documented as of this encounter
== END 2024-11-18 13:32 | disposition home or self-care (01) ==
LOC: CHSIMG 13:32
PROVIDERS: PCP Internal Medicine; Visit Provider Internal Medicine
DX: Z78.0 Asymptomatic menopausal state (principal); I65.23 Occlusion and stenosis of bilateral carotid arteries; M85.89 Other specified disorders of bone density and structure, multiple sites; M81.0 Age-related osteoporosis without current pathological fracture
CPT/HCPCS: 77080; 93880

== ENCOUNTER 2024-12-01 08:43 | Outpatient (CLI) | payer MEDICARE, SELFPAY ==
--- OUTSIDE RECORDS SUMMARY | 2024-12-01 08:47 | XMS_ITS | Encounter Summary ---
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 No / Unsure 04/01/2020 8:42 AM INFORMATION TECHNOLOGY TECHNICIAN documented as of this encounter Functional Status * RETIRED Are you deaf or do you have serious difficulty hearing Answer Date of Assessment Author Status No 04/13/2019 12:57 PM INFORMATION TECHNOLOGY TECHNICIAN Acti ve * RETIRED Are you blind or do you have serious difficulty seeing, even when wearing glasses? Answer Date of Assessment Author Status No 04/13/2019 12:57 PM INFORMATION TECHNOLOGY TECHNICIAN Acti ve * Do you have serious [...] on filedocumented in this encounter Care Teams Category Development Manager Relationship Specialty Start Date End Date Kris Hussein MD [address] [place] [address] PCP - General INTERNAL MEDICINE 12/10/16 Cheryl Ordoñez MD [address] [facility] [address] [place] [address] EP Blow Mold Machine Operator CLINICAL CARDIAC ELECTROPHYSIOLOGY 12/10/16 documented as of this encounter
--- OUTSIDE RECORDS SUMMARY | 2024-12-01 08:47 | XMS_ITS | Clinical Summary ---
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 on file Not on fi le Last Filed Vital Signs Vital Sign Reading Time Taken Comments Blood Pressure 142/62 04/15/2019 4:37 AM PALEOLOGY PROFESSOR Pulse 61 04/15/2019 4:37 AM PALEOLOGY PROFESSOR Temperature 37.3 C (99.1 F) 04/15/2019 4:37 AM PALEOLOGY PROFESSOR Respiratory Rate 18 04/15/2019 4:37 AM PALEOLOGY PROFESSOR Oxygen Saturation 96% 04/15/2019 4:37 AM PALEOLOGY PROFESSOR Inhaled Oxygen Concentration - - Weight 86.2 [...] - 2023-2 5 season) 2024 PHQ-2 (Physician [place]) 05/13/2024 Meningococcal B Vaccine Aged Out No l onger eligible based on patient's age to complete this topic Meningococcal Vaccine Aged Out No bharati zachary eligible based on patient's age to complete this topic RSV Immunizations Under 20 Months Aged Out No longer eligible based on patient's age to complete this topic Medical Devices Implanted Type Area Deputy Head Device Identifier Shelf Expiration Date Model / Serial / Lot Cement Simplex Hv W/Gentamicin - [id number] Implanted:Qty: 1 on 04/13/2019 by Carlos Alanis MD at [facility] Right: Knee [employer] 12/10/2020 6195-1-010 / / [id number] Cement Simplex Hv W/Gentamicin - [id number] Implanted:Qty: 1 on 04/13/2019 by Carlos Alanis MD at [facility] Right: Knee [employer] 06/12/2020 6195-1-010 / / [id number] Modular Stem Cemented Implanted:Qty: 1 on 04/13/2019 by Carlos Alanis MD at [facility] Right: Knee 04/11/2027 [id number] / / [id number] Tray Depuy Sigma Tibial Size 3 - [id number] Implanted:Qty: 1 on 04/13/2019 by Carlos Alanis MD at [facility] Right: Knee [employer]PU[employer] 12/10/2028 [id number] / / [id number] Femur Posterior Stabilized Depuy Size 4 Right - [id number] Implanted:Qty: 1 on 04/13/2019 by Carlos Alanis MD at [facility] Right: Knee DEPUY 12/11/2027 [id number] / / [id number] Dome Depuy Oval Patella 3-Peg 32mm - [id number] Implanted:Qty: 1 on 04/13/2019 by Carlos Alanis MD at [facility] Right: Knee DEPUY 01/10/2023 [id number] / / [id number] Insert Depuy Sigma Tibial Size 3 12.5mm - [id number] Implanted:Qty: 1 on 04/13/2019 by Carlos Alanis MD at [facility] Right: Knee DEPUY 07/11/2023 [id number] / / [id number] Insurance GENERIC WORKMANS COMP AETNA [facility] Care Teams Metal Cabinet Finisher Relationship Specialty Start Date End Date Kris Hussein MD [address] [place] [address] PCP - General INTERNAL MEDICINE 12/10/16 Cheryl Ordoñez MD [address] [facility] [address] [place] [address] EP Welder Apprentice Combination CLINICAL CARDIAC ELECTROPHYSIOLOGY 12/10/16
--- OUTSIDE RECORDS SUMMARY | 2024-12-01 08:47 | XMS_ITS | Encounter Summary ---
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 Answer Date of Assessment Author Status No 04/13/2019 12:57 PM SENIOR SECURITY ARCHITECT Acti ve * Do you have serious [...] on filedocumented in this encounter Care Teams Labor Delivery Specialist Relationship Specialty Start Date End Date Kris Hussein MD [address] [place] [address] PCP - General INTERNAL MEDICINE 12/10/16 Cheryl Ordoñez MD [address] [facility] [address] [place] [address] EP Building Coordinator CLINICAL CARDIAC ELECTROPHYSIOLOGY 12/10/16 documented as of this encounter
--- OUTSIDE RECORDS SUMMARY | 2024-12-01 08:47 | XMS_ITS | Encounter Summary ---
Author Organization 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 on file Not on fi le documented as of this encounter Functional Status * RETIRED Are you deaf or do you have serious difficulty hearing Answer Date of Assessment Author Status No 04/13/2019 12:57 PM LOG CARRIER OPERATOR Acti ve * RETIRED Are you [...] on filedocumented in this encounter Care Teams Avionic Technician Relationship Specialty Start Date End Date Kris Hussein MD [address] [place] [address] PCP - General INTERNAL MEDICINE 12/10/16 Cheryl Ordoñez MD [address] [facility] [address] [place] [address] EP Preschool Head Teacher CLINICAL CARDIAC ELECTROPHYSIOLOGY 12/10/16 documented as of this encounter
[2024-12-01 09:01] VITALS: BP 134/69; PULSE 60; RESP 14; TEMP 36.6; O2SAT 98; BMI 36.2
[2024-12-01] MEDS: ZOLEDRONIC ACID 5 MG/100 ML 100 ML 400 MG IVPB (09:20)
--- NOTE | 2024-12-01 09:40 | PC.NURSE ---
Tolerated yearly Reclast infusion well. CBC not needed for infusion, to go forward on MAR had to check yes. SEE MAR/patient care notes.
[2024-12-01 09:42] VITALS: BP 129/67; PULSE 60; RESP 14
== END 2024-12-01 08:44 | disposition home or self-care (01) ==
PROVIDERS: PCP Internal Medicine; Visit Provider Internal Medicine
DX: M81.0 Age-related osteoporosis without current pathological fracture (principal)
CPT/HCPCS: 96374; J3489

== ENCOUNTER 2024-12-22 08:19 | Outpatient (CLI) | payer MEDICARE, SELFPAY ==
[2024-12-15 11:11] VITALS: BMI 37.0
--- NOTE | 2024-12-15 11:12 | PC.NURSE ---
Pre Radiology instructions Report to the outpatient [facility] on date __12/22/24___ at time 8:30AM__ for procedure Time: _10:30AM___ YOU MAY BE MONITORED AT HOSPITAL FOR UP TO 4 HOURS AFTER YOUR PROCEDURE. A visitor will be allowed to accompany the patient into the hospital. You and your visitor will be asked to self-screen and do not enter if you have any COVID symptoms. A mask is OPTIONAL within the hospital. Patients are to have no food or drink 6 hours prior to procedure time Driving will be restricted after the procedure, you must have a person to drive you home. Labs will be drawn in preop area and once reviewed, you will be taken to radiology area for procedure. When the procedure is completed, you will be taken to outpatient where you will be monitored for several hours. You may have one visitor in this area. Other than holding anti-coagulants, patient may take other medication(s) as scheduled. Prior to your appointment date patients are instructed to hold anti-coagulants after discussing with ordering provider to stop. If unable to discontinue anti-coagulants please notify radiologist. ? No aspirin or warfarin (Coumadin) for 7 days prior to the procedure. ? No clopidogrel (Plavix), ticagrelor (Brilinta), prasugrel (Effient) or dabigatran (Pradaxa) for 5 days prior to the procedure. ? No rivaroxaban (Xarelto), apixaban (Eliquis), dipyridamole (Aggrenox or Persantine) or cilostazol (Pletal) for 2 days prior to the procedure. Medications to discontinue per physician: ___HOLD COUMADIN 7 DAYS PRE-OP Date to take last dose: ____12/14/24 Please leave all valuables, including medications, at home the day of procedure. The hospital will not accept responsibility for valuables. Wear comfortable, loose fitting clothing.? Follow any additional instructions given to you from ordering provider. Telephone instructions given to ____PATIENT and asked if any additional questions and then verbalized understanding. Patient advised to call scheduling provider office or registration scheduling [phone] if any additional questions.
[2024-12-22] VITALS (12 sets, daily range): BP systolic 140–179; BP diastolic 62–86; PULSE 50–58; RESP 14–16; TEMP 36.8; O2SAT 99–100
--- NOTE | ~2024-12-22 | US_ITS ---
EXAMINATION: US biopsy liver DATE: 12/22/2024 10:45 INDICATION: Unspecified cirrhosis of liver TECHNIQUE: The procedure including the risks and benefits was discussed with the patient. Risks discu ssed included bleeding and infection. The patient understood the risks and agreed to proceed. The sk in overlying the liver was prepped and draped in usual sterile fashion. Anesthetic was administered with 1% lidocaine subcutaneously. An 18 gauge core biopsy needle was advanced under continuous ultra sound observation to the lesion of interest. 3 core biopsy specimens were obtained. The needle was removed and the entry site was cleaned and dressed. Post procedure ultrasound demonstrated no hemorr kisha. FINDINGS: Ultrasound images demonstrate needles advanced into the caudal right hepatic lobe. IMPRESSION: 1. Successful Ultrasound-guided random liver biopsy. Reviewed, dictated and finalized at location A.
--- OUTSIDE RECORDS SUMMARY | 2024-12-22 08:28 | XMS_ITS | Encounter Summary ---
Author Organization [facility] Address [address] [place] [address] Care Team Providers Care Canvass Manager Name Role Phone Kris Hussein MD Primary Care Provider [phone] Cheryl Ordoñez MD Unavailable [phone] Encounter Details Date Type Department Care Team (Late st Contact Info) Description 10/02/2019 [employer] Message Enc [facility] [address], [address] [place] [address] Carlos Alanis MD [address] [place] [address] Visit Follow Up Social History Tobacco [...] Assessment Author Status No 04/13/2019 12:57 PM LANDSCAPE AND YARDWORK LABORER Acti ve * RETIRED Are you blind or do you have serious difficulty seeing, even when wearing glasses? Answer Date of Assessment Author Status No 04/13/2019 12:57 PM LANDSCAPE AND YARDWORK LABORER Acti ve * Do you have serious [...] on filedocumented in this encounter Care Teams Canvass Manager Relationship Specialty Start Date End Date Kris Hussein MD [address] [place] [address] PCP - General INTERNAL MEDICINE 12/10/16 Cheryl Ordoñez MD [address] [facility] [address] [place] [address] EP Instrument Maker And Repairer CLINICAL CARDIAC ELECTROPHYSIOLOGY 12/10/16 documented as of this encounter
--- OUTSIDE RECORDS SUMMARY | 2024-12-22 08:28 | XMS_ITS | Clinical Summary ---
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 on file Not on fi le Last Filed Vital Signs Vital Sign Reading Time Taken Comments Blood Pressure 142/62 04/15/2019 4:37 AM DIRECTOR OF SCOUT WORK Pulse 61 04/15/2019 4:37 AM DIRECTOR OF SCOUT WORK Temperature 37.3 C (99.1 F) 04/15/2019 4:37 AM DIRECTOR OF SCOUT WORK Respiratory Rate 18 04/15/2019 4:37 AM DIRECTOR OF SCOUT WORK Oxygen Saturation 96% 04/15/2019 4:37 AM DIRECTOR OF SCOUT WORK Inhaled Oxygen Concentration - - Weight 86.2 [...] - 2023-2 5 season) 2024 PHQ-2 (Physician [place]) 05/13/2024 Meningococcal B Vaccine Aged Out No l onger eligible based on patient's age to complete this topic Meningococcal Vaccine Aged Out No bharati zachary eligible based on patient's age to complete this topic RSV Immunizations Under 20 Months Aged Out No longer eligible based on patient's age to complete this topic Medical Devices Implanted Type Area Tissue Recovery Technician Device Identifier Shelf Expiration Date Model / Serial / Lot Cement Simplex Hv W/Gentamicin - [id number] Implanted:Qty: 1 on 04/13/2019 by Carlos Alanis MD at [facility] Right: Knee [employer] 12/10/2020 6195-1-010 / / [id number] Cement Simplex Hv W/Gentamicin - [id number] Implanted:Qty: 1 on 04/13/2019 by Carlos Alanis MD at [facility] Right: Knee [employer] 06/12/2020 6195-1-010 / / [id number] Modular Stem Cemented Implanted:Qty: 1 on 04/13/2019 by Carlos Alanis MD at [facility] Right: Knee 04/11/2027 [id number] / / [id number] Tray Depuy Sigma Tibial Size 3 - [id number] Implanted:Qty: 1 on 04/13/2019 by Carlos Alanis MD at [facility] Right: Knee DEPUY 12/10/2028 [id number] / / [id number] Femur Posterior Stabilized Depuy Size 4 Right - [id number] Implanted:Qty: 1 on 04/13/2019 by Carlos Alanis MD at [facility] Right: Knee DEPUY 12/11/2027 [id number] / / [id number] Dome Depuy Oval Patella 3-Peg 32mm - [id number] Implanted:Qty: 1 on 04/13/2019 by Carlos Alanis MD at [facility] Right: Knee DEPUY 01/10/2023 [id number] / / [id number] Insert Depuy Sigma Tibial Size 3 12.5mm - [id number] Implanted:Qty: 1 on 04/13/2019 by Carlos Alanis MD at [facility] Right: Knee DEPUY 07/11/2023 [id number] / / [id number] Insurance [employer]ETNA FORMERLY [facility] Care Teams Metal Loader Relationship Specialty Start Date End Date Kris Hussein MD [address] [place] [address] PCP - General INTERNAL MEDICINE 12/10/16 Cheryl Ordoñez MD [address] [facility] [address] [place] [address] EP Auto Wheel Alignment Specialist CLINICAL CARDIAC ELECTROPHYSIOLOGY 12/10/16
--- OUTSIDE RECORDS SUMMARY | 2024-12-22 08:28 | XMS_ITS | Encounter Summary ---
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 No / Unsure 04/01/2020 8:42 AM SOLAR POWER INSTALLER documented as of this encounter Functional Status * RETIRED Are you deaf or do you have serious difficulty hearing Answer Date of Assessment Author Status No 04/13/2019 12:57 PM SOLAR POWER INSTALLER Acti ve * RETIRED Are you blind or do you have serious difficulty seeing, even when wearing glasses? Answer Date of Assessment Author Status No 04/13/2019 12:57 PM SOLAR POWER INSTALLER Acti ve * Do you have serious [...] on filedocumented in this encounter Care Teams Performance Improvement Coordinator Relationship Specialty Start Date End Date Kris Hussein MD [address] [place] [address] PCP - General INTERNAL MEDICINE 12/10/16 Cheryl Ordoñez MD [address] [facility] [address] [place] [address] EP Bi Technical Lead CLINICAL CARDIAC ELECTROPHYSIOLOGY 12/10/16 documented as of this encounter
--- OUTSIDE RECORDS SUMMARY | 2024-12-22 08:29 | XMS_ITS | Encounter Summary ---
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 Answer Date of Assessment Author Status No 04/13/2019 12:57 PM JOVI Acti ve * Do you have serious difficulty walking or climbing stairs? Answer Date of Assessment Author Status Yes 04/13/2019 12:57 PM Vaelrie Cam RN Active * Do you have [...] on filedocumented in this encounter Care Teams Computer Technologist Relationship Specialty Start Date End Date Kris Hussein MD [address] [place] [address] PCP - General INTERNAL MEDICINE 12/10/16 Cheryl Ordoñez MD [address] [facility] [address] [place] [address] EP Certified Maintenance Welder CLINICAL CARDIAC ELECTROPHYSIOLOGY 12/10/16 documented as of this encounter
[2024-12-22 09:02] LABS: Platelet Count Result 183 k/mm3 (150-375)
[2024-12-22 09:16] LABS: INR 1.1; Prothrombin Time 14.3 Seconds (11.1-14.7)
--- NOTE | 2024-12-22 10:25 | S_PTH ---
PATIENT: Karla Clements LOC: [facility] U#:[id number] AGE/SX: 69/F ROOM: RE12/22/[address]: Preet Ge MD : 1955 BED: DIS: 12/22/2024 SPEC #: [id number] RECD: 12/22/24 10:49 STATUS: JAVIER REBillie #: [id number] CHANDLER: 12/22/24 10:[address]: Sherry Wolf DEPT: [facility] Surgical RECD BY: Rich Harding ENTERED: 12/22/24 10:50 SP TYPE: Surgical OTHR DR: MD Kris Dominguez MD Tissues: A - Liver Biopsy Procedures: Pas with Diastase Unstained Slides Hematoxylin and Eosin Stain Periodic Acid Danielle Reticulum Stain Trichrome Stain Gross and Microscopic Level 5 Iron Stain
== END 2024-12-22 14:43 | disposition home or self-care (01) ==
PROVIDERS: PCP Internal Medicine; Referring Provider Nurse Practitioner Family; Visit Provider Radiology Diagnostic Radiology
PROC: BF45ZZZ Ultrasonography of Liver (ICD-10-PCS; CPT 47000; principal; 2024-12-22 10:30)
DX: K74.60 Unspecified cirrhosis of liver (principal); K75.4 Autoimmune hepatitis; R79.89 Other specified abnormal findings of blood chemistry; R76.8 Other specified abnormal immunological findings in serum
CPT/HCPCS: 36415; 47000; 76942; 85049; 85610; 88307; 88312; 88313

== ENCOUNTER 2025-02-24 09:50 | Outpatient (CLI) | payer MEDICARE, SELFPAY ==
[2025-02-24 10:08] LABS: Add Urine Microscopic? YES; Appearance Urine Clear (Clear); Glucose Urine UA Negative (Negative); Hematocrit 44.4 % (35.0-42.0); Hemoglobin 14.7 g/dL (11.7-13.8); Leukocyte Esterase Ur Negative (Negative); Mean Corpuscular HGB Conc 33.1 g/dL (32-36); Mean Corpuscular Hemoglobin 31.5 pg (27.0-31.0); Mean Corpuscular Volume 95.1 fL (78.0-102.0); Nitrate Urine Negative (Negative); Platelet Count Result 191 K/mm3 (150-420); Red Blood Count 4.67 M/mm3 (4.20-5.40); Specific Grav Ur 1.015 (1.010-1.020); White Blood Count 4.4 K/mm3 (4.8-10.8)
[2025-02-24 10:17] LABS: Hemoglobin A1C 5.9 % (<5.7)
[2025-02-24 10:22] LABS: INR 2.5; Prothrombin Time 25.5 Seconds (9.50-12.1)
[2025-02-24 10:35] LABS: Alanine Aminotransferase 72 U/L (6-35); Albumin Level 4.6 g/dL (3.5-5.1); Alkaline Phosphatase 61 U/L (38-126); Anion Gap 7 mmol/L (4-12); Aspartate Amino Transferase 67 U/L (14-36); Bilirubin,Total 1.0 mg/dL (0.2-1.3); Blood Urea Nitrogen 9 mg/dL (7-17); Calcium 10.0 mg/dL (8.4-10.2); Carbon Dioxide 27 mmol/L (22-30); Chloride 106 mmol/L (98-107); Cholesterol 140 mg/dL (0-200); Creatine Kinase 74 U/L (30-135); Estimated Glomerular Filt Rate > 60; Glucose 106 mg/dL (65-110); HDL Direct 64 mg/dL; Osmolality Calculated 288 mOsm/kg (285-295); Potassium 4.5 mmol/L (3.4-5.0); Sodium 140 mmol/L (137-145); Total Protein 9.6 g/dL (6.3-8.2); Triglycerides 95 mg/dL (<150)
[2025-02-24 10:47] LABS: GGT 47.9 U/L (12-43)
[2025-02-24 10:51] LABS: Free T3 3.34 pg/mL (2.18-3.98)
[2025-02-24 10:52] LABS: Free T4 Free Thyroxine 1.84 ng/dL (0.78-2.19)
[2025-02-24 11:05] LABS: Thyroid Stimulating Hormone 0.313 uIU/mL (0.465-4.680)
--- OUTSIDE RECORDS SUMMARY | 2025-02-24 11:18 | XMS_ITS | Encounter Summary ---
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 Not on file Not on fi le documented as of this encounter Functional Status * RETIRED Are you deaf or do you have serious difficulty hearing Answer Date of Assessment Author Status No 04/13/2019 12:57 PM SENIOR NET ARCHITECT Acti ve * RETIRED Are you [...] filedocumented in this encounter Care Teams Network Administrator Relationship Specialty Start Date End Date Kris Hussein MD [address] [place] [address] PCP - General INTERNAL MEDICINE 12/10/16 Cheryl Ordoñez MD [address] [facility] [address] [place] [address] EP Typing Pool Supervisor CLINICAL CARDIAC ELECTROPHYSIOLOGY 12/10/16 documented as of this encounter
--- OUTSIDE RECORDS SUMMARY | 2025-02-24 11:18 | XMS_ITS | Encounter Summary ---
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 Answer Date of Assessment Author Status No 04/13/2019 12:57 PM FORM DRAFTER Acti ve * Do you have serious [...] on filedocumented in this encounter Care Teams Multimedia Educational Specialist Relationship Specialty Start Date End Date Kris Hussein MD [address] [place] [address] PCP - General INTERNAL MEDICINE 12/10/16 Cheryl Ordoñez MD [address] [facility] [address] [place] [address] EP Travel Ot CLINICAL CARDIAC ELECTROPHYSIOLOGY 12/10/16 documented as of this encounter
--- OUTSIDE RECORDS SUMMARY | 2025-02-24 11:18 | XMS_ITS | Clinical Summary ---
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 Not on file Not on fi le Last Filed Vital Signs Vital Sign Reading Time Taken Comments Blood Pressure 142/62 04/15/2019 4:37 AM ASSISTANT PRODUCER Pulse 61 04/15/2019 4:37 AM ASSISTANT PRODUCER Temperature 37.3 C (99.1 F) 04/15/2019 4:37 AM ASSISTANT PRODUCER Respiratory Rate 18 04/15/2019 4:37 AM ASSISTANT PRODUCER Oxygen Saturation 96% 04/15/2019 4:37 AM ASSISTANT PRODUCER Inhaled Oxygen Concentration - - Weight 86.2 [...] 2018 Dexa Scan (General) 2018 COVID-19 Vaccine (1 - 2023-2 5 season) 2025 Influenza Adult (#1) 2025 Meningococcal B Vaccine Aged Out No l onger eligible based on patient's age to complete this topic Meningococcal Vaccine Aged Out No bharati zachary eligible based on patient's age to complete this topic RSV Immunizations Under 20 Months Aged Out No longer eligible based on patient's age to complete this topic Medical Devices Implanted Type Area Asphalt Patcher Device Identifier Shelf Expiration Date Model / Serial / Lot Cement Simplex Hv W/Gentamicin - [id number] Implanted:Qty: 1 on 04/13/2019 by Carlos Alanis MD at [facility] Right: Knee [employer] 12/10/2020 6195-1-010 / / [id number] Cement Simplex Hv W/Gentamicin - [id number] Implanted:Qty: 1 on 04/13/2019 by Carlos Alanis MD at [facility] Right: Knee [employer]J 06/12/2020 6195-1-010 / / [id number] Modular Stem Cemented Implanted:Qty: 1 on 04/13/2019 by Carlos Alanis MD at [facility] Right: Knee 04/11/2027 [id number] / / [id number] Tray Depuy Sigma Tibial Size 3 - [id number] Implanted:Qty: 1 on 04/13/2019 by Carlos Alanis MD at [facility] Right: Knee DEPUY 12/10/2028 [id number] / / [id number] Femur Posterior Stabilized Depuy Size 4 Right - [id number] Implanted:Qty: 1 on 04/13/2019 by Carlos Alanis MD at [facility] Right: Knee DEPUY 12/11/2027 [id number] / / [id number] Dome Depuy Oval Patella 3-Peg 32mm - [id number] Implanted:Qty: 1 on 04/13/2019 by Carlos Alanis MD at [facility] Right: Knee DEPUY 01/10/2023 [id number] / / [id number] Insert Depuy Sigma Tibial Size 3 12.5mm - [id number] Implanted:Qty: 1 on 04/13/2019 by Carlos Alanis MD at [facility] Right: Knee DEPUY 07/11/2023 [id number] / / [id number] Insurance [employer]IC [employer] [facility] AETNA MEDICARE [facility]MERLY [facility] Care Teams Metalworking Specialist Relationship Specialty Start Date End Date Kris Hussein MD [address] [place] [phone] PCP - General INTERNAL MEDICINE 12/10/16 Cheryl Ordoñez MD [address] [facility] [address] [place] [address] EP Lavender Farm Worker CLINICAL CARDIAC ELECTROPHYSIOLOGY 12/10/16
--- OUTSIDE RECORDS SUMMARY | 2025-02-24 11:18 | XMS_ITS | Encounter Summary ---
Author Organization [facility] Address [address] [place] [address] Care Team Providers Care Surg Nurse Name Role Phone Kris Hussein MD Primary Care Provider [phone] Cheryl Ordoñez MD Unavailable [phone] Encounter Details Date Type Department Care Team (Late st Contact Info) Description 04/01/2020 Zadby Message Enc [facility] [address], [address] [place] [address] Carlos Alanis MD [address] [place] [address] Visit Follow Up Social History Tobacco [...] COVID-19? No / Unsure 04/01/2020 8:42 AM TRIMMER MEAT documented as of this encounter Functional Status * RETIRED Are you deaf or do you have serious difficulty hearing Answer Date of Assessment Author Status No 04/13/2019 12:57 PM TRIMMER MEAT Acti ve * RETIRED Are you blind or do you have serious difficulty seeing, even when wearing glasses? Answer Date of Assessment Author Status No 04/13/2019 12:57 PM TRIMMER MEAT Acti ve * Do you have serious [...] on filedocumented in this encounter Care Teams Surg Nurse Relationship Specialty Start Date End Date Kris Hussein MD [address] [place] [address] PCP - General INTERNAL MEDICINE 12/10/16 Cheryl Ordoñez MD [address] [facility] [address] [place] [address] EP Family Service Assistant CLINICAL CARDIAC ELECTROPHYSIOLOGY 12/10/16 documented as of this encounter
[2025-02-25 07:12] LABS: Immunoglobulin G 1917.61
== END 2025-02-24 09:51 | disposition home or self-care (01) ==
LOC: CHSLAB 09:52
PROVIDERS: PCP Internal Medicine; Visit Provider Nurse Practitioner Family
DX: R79.89 Other specified abnormal findings of blood chemistry (principal); K75.4 Autoimmune hepatitis; E78.2 Mixed hyperlipidemia; E03.4 Atrophy of thyroid (acquired); I48.0 Paroxysmal atrial fibrillation; E55.9 Vitamin D deficiency, unspecified; R73.01 Impaired fasting glucose; Z79.01 Long term (current) use of anticoagulants
CPT/HCPCS: 36415; 80053; 80061; 81001; 82105; 82306; 82550; 82784; 82977; 83036; 84439; 84443; 84481; 85027; 85610

== ENCOUNTER 2025-04-12 07:14 | Outpatient (CLI) | payer MEDICARE, SELFPAY ==
--- NOTE | ~2025-04-12 | US_ITS ---
ULTRASOUND ABDOMEN LIMITED (RIGHT UPPER QUADRANT) Clinical History: K74.60 - Unspecified cirrhosis of liver Comparison: CT abdomen 09/17/2024 Technique: Right upper quadrant sonography Findings: Liver: Nodular contour. Enlarged. Echogenic. No intrahepatic biliary ductal dilatation. Normal hepatopedal flow main portal vein. No discrete mass identified. Common Duct: Normal caliber. 5 mm. Gallbladder: No stones. No wall thickening. No pericholecystic fluid. Pancreas: Unremarkable. IMPRESSION: 1. Cirrhosis. No discrete hepatic mass identified. 2. No acute abnormality. Reviewed, dictated and finalized at location R. [employer]
--- OUTSIDE RECORDS SUMMARY | 2025-04-12 07:18 | XMS_ITS | Encounter Summary ---
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 No / Unsure 04/01/2020 8:42 AM WELL SERVICES OPERATOR documented as of this encounter Functional Status * RETIRED Are you deaf or do you have serious difficulty hearing Answer Date of Assessment Author Status No 04/13/2019 12:57 PM WELL SERVICES OPERATOR Acti ve * RETIRED Are you blind or do you have serious difficulty seeing, even when wearing glasses? Answer Date of Assessment Author Status No 04/13/2019 12:57 PM WELL SERVICES OPERATOR Acti ve * Do you have [...] on filedocumented in this encounter Care Teams Take Up Supervisor Relationship Specialty Start Date End Date Kris Hussein MD [address] [place] [address] PCP - General INTERNAL MEDICINE 12/10/16 Cheryl Ordoñez MD [address] [facility] [address] [place] [address] EP Medical Technologist Generalist CLINICAL CARDIAC ELECTROPHYSIOLOGY 12/10/16 documented as of this encounter
--- OUTSIDE RECORDS SUMMARY | 2025-04-12 07:18 | XMS_ITS | Encounter Summary ---
Author Organization [facility] Address [address] [place] [address] Care Team Providers Care Chain Pegger Name Role Phone Kris Hussein MD Primary Care Provider [phone] Cehryl Ordoñez MD Unavailable [phone] Encounter Details Date Type Department Care Team (Late st Contact Info) Description 10/02/2019 Maven Message Enc [facility] [address], [address] [place] [address] Carlos Alanis MD [address] [place] [address] Visit Follow Up Social History Tobacco [...] Assessment Author Status No 04/13/2019 12:57 PM PHOTO MASK PATTERN GENERATOR Acti ve * RETIRED Are you blind or do you have serious difficulty seeing, even when wearing glasses? Answer Date of Assessment Author Status No 04/13/2019 12:57 PM PHOTO MASK PATTERN GENERATOR Acti ve * Do you have serious [...] on filedocumented in this encounter Care Teams Chain Pegger Relationship Specialty Start Date End Date Kris Hussein MD [address] [place] [address] PCP - General INTERNAL MEDICINE 12/10/16 Cheryl Ordoñez MD [address] [facility] [address] [place] [address] EP Curriculum Writer CLINICAL CARDIAC ELECTROPHYSIOLOGY 12/10/16 documented as of this encounter
--- OUTSIDE RECORDS SUMMARY | 2025-04-12 07:18 | XMS_ITS | Clinical Summary ---
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 on file Not on fi le Last Filed Vital Signs Vital Sign Reading Time Taken Comments Blood Pressure 142/62 04/15/2019 4:37 AM PATIENT REGISTRATION REP Pulse 61 04/15/2019 4:37 AM PATIENT REGISTRATION REP Temperature 37.3 C (99.1 F) 04/15/2019 4:37 AM PATIENT REGISTRATION REP Respiratory Rate 18 04/15/2019 4:37 AM PATIENT REGISTRATION REP Oxygen Saturation 96% 04/15/2019 4:37 AM PATIENT REGISTRATION REP Inhaled Oxygen Concentration - - Weight 86.2 [...] 1 - Tdap) 1972 Mammogram Screening 1993 Zoster Vaccines (2 of 3) 06/24/2014 04/29/2014 Pneumococcal Vaccine: 50+ Ye ars (2 of 2 - PPSV23, PCV20, or PCV21) 02/03/2015 12/09/2014 Annual Medicare Wellness Visit 2018 Dexa Scan (General) 2018 COVID-19 Vaccine ( - 2024-2 6 season) 2025 Influenza Adult (#1) 2025 RSV Immunization or 60+ Years (1 - 1-dose 75+ series) 2028 Hepatitis A Vaccines Aged Out No long er eligible based on patient's age to complete this topic Meningococcal B Vaccine Aged Out No l onger eligible based on patient's age to complete this topic Meningococcal Vaccine Aged Out No bharati zachary eligible based on patient's age to complete this topic RSV Immunizations Under 20 Months Aged Out No longer eligible based on patient's age to complete this topic Medical Devices Implanted Type Area Tape Controlled Machine Stitcher Device Identifier Shelf Expiration Date Model / Serial / Lot Cement Simplex Hv W/Gentamicin - [id number] Implanted:Qty: 1 on 04/13/2019 by Carlos Alanis MD at [facility] Right: Knee [employer]J 12/10/2020 6195-1-010 / / [id number] Cement Simplex Hv W/Gentamicin - [id number] Implanted:Qty: 1 on 04/13/2019 by Carlos Alanis MD at [facility] Right: Knee [employer] 06/12/2020 6195-1-010 / / [id number] Modular Stem Cemented Implanted:Qty: 1 on 04/13/2019 by Carlos Alanis MD at [facility] Right: Knee 04/11/2027 [id number] / / [id number] Tray Depuy Sigma Tibial Size 3 - [id number] Implanted:Qty: 1 on 04/13/2019 by Carlos Alanis MD at [facility] Right: Knee DEPUY 12/10/2028 [id number] / / [id number] Femur Posterior Stabilized Depuy Size 4 Right - [id number] Implanted:Qty: 1 on 04/13/2019 by Carlos Alanis MD at [facility] Right: Knee DEPUY 12/11/2027 [id number] / / [id number] Dome Depuy Oval Patella 3-Peg 32mm - [id number] Implanted:Qty: 1 on 04/13/2019 by Carlos Alanis MD at [facility] Right: Knee DEPUY 01/10/2023 [id number] / / [id number] Insert Depuy Sigma Tibial Size 3 12.5mm - [id number] Implanted:Qty: 1 on 04/13/2019 by Carlos Alanis MD at [facility] Right: Knee DEPUY 07/11/2023 [id number] / / [id number] Insurance [employer] [facility] AETNA MEDICARE [facility] Care Teams Scarfing Machine Operator Relationship Specialty Start Date End Date Kris Hussein MD [address] [place] [address] PCP - General INTERNAL MEDICINE 12/10/16 Cheryl Ordoñez MD [address] [facility] [address] [place] [address] EP Senior Architectural Designer CLINICAL CARDIAC ELECTROPHYSIOLOGY 12/10/16
--- OUTSIDE RECORDS SUMMARY | 2025-04-12 07:18 | XMS_ITS | Encounter Summary ---
Author Organization [facility] Address [address] [place] [address] Care Team Providers Care Medical Driver Name Role Phone Kris Hussein MD Primary Care Provider [phone] Cheryl Ordoñez MD Unavailable [phone] Encounter Details Date Type Department Care Team (Late st Contact Info) Description 12/25/[address] 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 Answer Date of Assessment Author Status No 04/13/2019 12:57 PM JOIV Acti ve * Do you have serious [...] on filedocumented in this encounter Care Teams Medical Driver Relationship Specialty Start Date End Date Kris Hussein MD [address] [place] [address] PCP - General INTERNAL MEDICINE 12/10/16 Cheryl Ordoñez MD [address] [facility] [address] [place] [address] EP Support Manager CLINICAL CARDIAC ELECTROPHYSIOLOGY 12/10/16 documented as of this encounter
== END 2025-04-12 07:15 | disposition home or self-care (01) ==
LOC: CHSIMG 07:15
PROVIDERS: PCP Internal Medicine; Visit Provider Nurse Practitioner Family
DX: K74.60 Unspecified cirrhosis of liver (principal)
CPT/HCPCS: 76705